=== PATIENT | female | born 1935 | race Caucasian/White ===

== ENCOUNTER 2024-09-26 21:56 | Emergency (ER) | payer MEDICARE, SELFPAY ==
[2024-09-26 21:57] VITALS: BMI 24.9
[2024-09-26 22:24] VITALS: BP 184/92; PULSE 74; RESP 18; TEMP 37.2; O2SAT 95
--- NOTE | 2024-09-26 22:42 | XR_ITS ---
Examination: CT brain head without contrast. 2-D sagittal coronal reconstructions Date and time of exam:September 26, 2024 at 10:59 PM Indications: Headache with high blood pressure today CTDI: vol (mGy):50.5 DLP: (mGycm):958 Technique: Multiple CT axial sections of the brain have been obtained, 5 mm slice thickness. Contrast has not been administered. 2-D sagittal, coronal reconstructions have been obtained Low dose protocols were performed. One or more of the following dose reduction techniques were used; automated exposure control, adjustment of the mA and/or KV according to patient size, use of iterative reconstruction technique. Findings: No significant ventricular enlargement. Intra-axial or extra-axial hemorrhage density is not seen. No mass effect or midline shift Basal cisterns are not remarkable. Fourth ventricle is midline. Cranial vault intact. Impression: Negative for acute hemorrhage, mass effect or midline shift
--- NOTE | 2024-09-26 22:42 | XR_ITS ---
Examination: PA lateral chest 2 views Technique: Upright PA lateral chest 2 views Exam date and time: September 26, 2024 11:07 PM Comparison January 05, 2010 Indications: Headache with hypertension chest pain today Findings: Normal heart size Ectatic thoracic aorta Mild accentuation basilar bronchovascular markings No pulmonary edema Severe osteopenia Impression: Mild accentuation basilar bronchovascular markings, consider pulmonary fibrosis, bronchitis, clinical correlation advised
--- NOTE | 2024-09-26 22:43 | PD.EDRME ---
Rapid Medical Screening Exam RME Arrival date/time: 09/26/24 21:56 88-year-old female with past medical history of hypertension presents emergency department complaining of high blood pressure dizziness and nausea. Chief Complaint: Headache Time Seen by Provider: 09/26/24 22:32 Vital signs: Vital Signs Temperature 99.0 F 09/26/24 22:24 Pulse Rate 74 09/26/24 22:24 Respiratory Rate 18 09/26/24 22:24 Blood Pressure 184/92 H 09/26/24 22:24 Pulse Oximetry (%) 95 09/26/24 22:24 Oxygen Delivery Method Room Air 09/26/24 22:24 Vital signs reviewed by provider: Yes
[2024-09-26 23:09] LABS: Basophils % (Auto) 1 % (0-2.5); Eosinophils # (Auto) 0.1 Thou/mm3 (0.0-0.5); Eosinophils % (Auto) 2 % (0-10); Hematocrit 34.8 % (36.0-46.0); Hemoglobin 11.7 g/dL (12.0-16.0); Immature Granulocytes % (Auto) 0 % (0-0); Immature Granulocytes Auto 0.02 Thou/mm3 (0.00-0.00); Lymphocytes # (Auto) 1.2 Thou/mm3 (1.0-4.8); Lymphocytes % (Auto) 19 % (10-50); Mean Corpuscular HGB Conc 33.6 g/dl (31.0-37.0); Mean Corpuscular Hemoglobin 30.8 pg (25.0-35.0); Mean Corpuscular Volume 92 fL (80-100); Monocytes # (Auto) 0.7 Thou/mm3 (0.0-0.8); Monocytes % (Auto) 11 % (0-12); Neutrophils # (Auto) 4.3 Thou/mm3 (1.8-7.7); Neutrophils % (Auto) 67 % (37-80); Nucleated Red Blood Cell % 0 /100 WBC (0); Platelet Count 268 Thou/mm3 (140-440); RDW Standard Deviation 41.9 fL (36.4-46.3); White Blood Count 6.4 Thou/mm3 (3.6-11.0)
[2024-09-26 23:17] LABS: Partial Thromboplastin Time 26.2 Seconds (22.0-36.0); Prothrombin Time 10.7 Seconds (9.0-12.2)
[2024-09-26 23:20] LABS: B-Type Natriuretic Peptide 117 pg/mL (0-100)
[2024-09-26 23:21] LABS: Alanine Aminotransferase 12 U/L (10-49); Albumin, Serum 3.8 gm/dL (3.4-4.8); Albumin/Globulin Ratio 1.5 (1.2-2.2); Alkaline Phosphatase 76 U/L (46-116); Anion Gap 8 (7-16); Aspartate Amino Transferase 20 U/L (0-34); BUN/Creatinine Ratio 19 Ratio (12-20); Bilirubin,Total 0.3 mg/dL (0.3-1.2); Blood Urea Nitrogen 17 mg/dL (9-23); Calcium 9.5 mg/dL (8.3-10.6); Calcium (Corrected) 9.7 mg/dL (8.5-10.1); Carbon Dioxide 25.2 mMol/L (20.0-31.0); Chloride 104 mMol/L (98-107); Creatinine (Component) 0.9 mg/dL (0.6-1.3); Estimated Creatinine Clearance 35.9 mL/min (>60); Globulin 2.5 gm/dL (2.3-3.5); Glucose 132 mg/dL (74-106); Magnesium 2.1 mg/dL (1.6-2.6); Osmolality,Calculated 277 (275-295); Potassium 3.9 mMol/L (3.4-5.1); Sodium 137 mMol/L (136-145); Total Protein 6.3 gm/dL (5.7-8.2); Troponin I < 0.020 ng/mL (0.0-0.045); eGFR > 60 See Note
[2024-09-27 00:10] LABS: Collection Type, Urine Clean Catch
[2024-09-27 00:16] VITALS: BP 199/109; PULSE 75; RESP 20; TEMP 36.9; O2SAT 96
--- NOTE | 2024-09-27 00:17 | EDNOTE_ITS ---
ED Headache RME/HPI General Chief Complaint: Headache Stated Complaint: HEADACHE/HIGH BLOOD PRESSURE 194/105 Time Seen by Provider: 09/26/24 22:32 Arrival date/time: 09/26/24 21:56 RME / HPI RME / HPI Narrative: 09/26/24 21:56 88-year-old female with past medical history of hypertension presents emergency department complaining of high blood pressure dizziness and nausea. DR. VALLADARES MAIN ED EVALUATION: 88-year-old female patient with a history of hypertension complaining of elevated blood pressure at home. Patient states she has been very stressed recently as her is hospitalized with influenza A. She states today her blood pressure was persistently 190s over 100s. She has taken her medications as directed. Denies chest pain or shortness of breath. She has had a mild dry cough. Denies numbness, tingling, vision changes. States earlier this evening she had a mild headache. Related Data Allergies Allergy/AdvReac Type Severity Reaction Status Date / Time No Known Allergies Allergy Verified 09/26/24 21:59 Review of Systems Review of Systems Systems Reviewed: All systems reviewed, normal except as documented Narrative Review of Systems: GEN: No fever, no chills, no weight loss EYES: No discharge, no visual changes, no pain HEENT: No ear pain, no congestion, no sore throat PULM: No shortness of breath, + mild dry cough cough, no congestion CV: No chest pain, no dyspnea on exertion, no palpitations GI: No nausea, no vomiting, no diarrhea, no pain, no constipation : No frequency, no urgency and no dysuria MUSC/SKEL: No joint pain, no back pain SKIN: No rash PSYCH: No hallucinations, no depression, + stress/ anxiety HEME/LYMPH: No easy bleeding or bruising tendencies NEURO: No weakness, + mild headache Past Medical History Social History SMOKING STATUS: Never smoker SUBSTANCE USE: does not use ALCOHOL: Never ED Exam Narrative Physical exam: GENERAL APPEARANCE: alert and oriented x 4, well-developed, well-nourished, no acute distress VITALS: All vitals were reviewed and the pulse ox is 97% on room air, which is normal according to my interpretation. HEENT: Normocephalic, atraumatic; pupils equal, round, reactive to light; EOMI; mucous membranes pink, moist; oropharynx clear NECK: Supple LUNGS: CTABL; no wheezes, no rales, no rhonchi HEART: Regular rate, regular rhythm; normal S1, S2; no murmurs ABDOMEN: non distended; normal BS; soft, no tenderness, no guarding, no rebound; no masses, no organomegaly, no hernia BACK: no CVA tenderness EXTREMITIES: atraumatic; no edema NEUROLOGIC: awake; alert and oriented x4; cranial nerves II-XII grossly intact; no focal sensory or motor deficits PSYCHIATRIC: appropriate mood and affect SKIN: warm, dry, normal color; no rashes Course Quality Measures none Orders Category Date Time Status EKG (ED ONLY) *Do not use* NOW Care 09/26/24 22:[address] head/brain wo con Stat Exams 09/26/24 22:42 Completed EKG (ED Only) Stat Exams 09/26/24 22:42 Ordered XR chest 2V Stat Exams 09/26/24 22:42 Completed B-Type Natriuretic Peptide Stat Lab 09/26/24 22:50 Completed CBC Stat Lab 09/26/24 22:50 Completed Comprehensive Metabolic Panel Stat Lab 09/26/24 22:50 Completed Magnesium Stat Lab 09/26/24 22:50 Completed Partial Thromboplastin Time Stat Lab 09/26/24 22:50 Completed Prothrombin Time with INR Stat Lab 09/26/24 22:50 Completed Troponin I Stat Lab 09/26/24 22:50 Completed Urinalysis Stat Lab 09/26/24 23:55 Completed hydrALAZINE HCL [Apresoline] Med 09/27/24 00:26 Discontinued 25 mg PO X1 ONE Reevaluation(s) Reevaluation #1: Patient remains clinically stable throughout the emergency department visit. Re-assessment at the time of disposition demonstrates that the patient is in no acute distress. We reviewed all the results, analysis, and treatment plans. Patient is amenable to discharge. Strict return precautions were outlined. Patient was discharged in stable condition. Time: 04:00 Vital Signs Vital signs: Vital Signs Temperature 99.0 F 09/26/24 22:24 Pulse Rate 74 09/26/24 22:24 Respiratory Rate 18 09/26/24 22:24 Blood Pressure 184/92 H 09/26/24 22:24 Pulse Oximetry (%) 95 09/26/24 22:24 Oxygen Delivery Method Room Air 09/26/24 22:24 Headache MDM Narrative MDM Narrative:: I, Alicia Leon, am scribing for and in the presence of Dr. Valladares. Patient data External records reviewed:: None (no previous visits) Clinical information provided by:: patient Social determinants that could affect healthcare access:: none Patient has the following chronic illnesses:: Hypertension How is presenting disease/condition affected by chronic disease/condition?: caused by Evaluation data The following diagnostics were reviewed and interpreted by me:: lab results, radiology exam(s) and EKG tracing(s) Lab and/or radiology exams considered but not ordered:: none Interpretation Summary: Procedure(s): CT head/brain wo con Accession Number(s): [id number] cc: Bc Fowler MD; NO PRIMARY/FAMILY,PHYSICIAN; Meche IBARRA)Anjel~ Examination: CT brain head without contrast. 2-D sagittal coronal reconstructions Date and time of exam:September 26, 2024 at 10:59 PM Indications: Headache with high blood pressure today CTDI: vol (mGy):50.5 DLP: (mGycm):958 Technique: Multiple CT axial sections of the brain have been obtained, 5 mm slice thickness. Contrast has not been administered. 2-D sagittal, coronal reconstructions have been obtained Low dose protocols were performed. One or more of the following dose reduction techniques were used; automated exposure control, adjustment of the mA and/or KV according to patient size, use of iterative reconstruction technique. Findings: No significant ventricular enlargement. Intra-axial or extra-axial hemorrhage density is not seen. No mass effect or midline shift Basal cisterns are not remarkable. Fourth ventricle is midline. Cranial vault intact. Impression: Negative for acute hemorrhage, mass effect or midline shift Dictated By: Bc Fowler MD Procedure(s): XR chest 2V Accession Number(s): [id number] cc: Bc Fowler MD; NO PRIMARY/FAMILY,PHYSICIAN; Meche Rothman (Erma [employer]NAGER)Anjel~ Examination: PA lateral chest 2 views Technique: Upright PA lateral chest 2 views Exam date and time: September 26, 2024 11:07 PM Comparison January 05, 2010 Indications: Headache with hypertension chest pain today Findings: Normal heart size Ectatic thoracic aorta Mild accentuation basilar bronchovascular markings No pulmonary edema Severe osteopenia Impression: Mild accentuation basilar bronchovascular markings, consider pulmonary fibrosis, bronchitis, clinical correlation advised Dictated By: Bc Fowler MD Medications / Prescriptions Medications or Prescriptions considered but not ordered:: none Medication administrations:: Medication Administration History Discontinued Medications Hydralazine HCl (Hydralazine Hcl 25 Mg Tablet) 25 mg PO X1 ONE Stop: 09/27/24 00:27 Last Admin: 09/27/24 01:09 Dose: 25 mg Documented By: CHRISTIANO see above Consultations Consultation(s) initiated? (list below): No Diagnosis Differential diagnosis headache: migraine, tension headache, headache and other (hypertensive emergency) Most likely diagnosis given after review of the tests above:: Elevated blood pressure reading Admission Indicated Admission indicated?: not indicated Admission Request Was there a request for admission?: No Disposition Plan Disposition Plan: Discharge Discharge Attestation Discharge Attestation: The patient and all family members were given an opportunity to ask questions and understood the discharge instructions. Discharge instructions specifically effects, indications for sooner follow up or return to the emergency department, and the expected course of current diagnosis. Patient condition: Stable Discharge Plan Plan Patient Disposition: HOME (Self Care) Prescriptions/Referrals Referrals: No Primary/Family,Physician [Primary Care Provider] - In 1 week Problem List Clinical Impression: Elevated blood pressure reading Patient/Caregiver Discharge Instructions Education Materials: ED High Blood Pressure ... Print Language: Luxembourgish Stand Alone Forms: Emy Award Info., Patient Portal Info Letter
[2024-09-27 00:37] LABS: Bilirubin,Urine Negative (Negative); Blood,Urine Negative (Negative); Clarity,Urine Clear (Clear/Hazy); Color,Urine Colorless (Lt Yel-Yel); Glucose, Urine Negative (Negative); Ketones,Urine Negative (Negative); Leukocyte Esterase,Urine Negative (Negative); Nitrite,Urine Negative (Negative); Protein,Urine Negative (Neg - Trace); RBC,Urine < 1 /hpf (0-3); Specific Gravity,Urine 1.004 (1.001-1.035); Squamous Epithelial Cell,Urine < 1 /hpf (0-5); Urobilinogen,Urine Negative mg/dL (0.0-1.0); WBC,Urine < 1 /hpf (0-5)
[2024-09-27 01:09] VITALS: BP 202/114; PULSE 78
[2024-09-27] MEDS: hydrALAZINE HCL 25 MG TABLET PO (01:09)
[2024-09-27 01:25] VITALS: BP 195/108; PULSE 78; RESP 18; TEMP 36.7; O2SAT 97
--- NOTE | 2024-09-27 01:26 | PC.NURSE ---
assisted pt to [facility]sc
[2024-09-27 03:56] VITALS: BP 176/102; PULSE 76; RESP 18; O2SAT 96
--- NOTE | 2024-09-27 03:58 | PC.NURSE ---
pt appears in NAD. Resting quietly with family at bedside. Pt denies pain .
== END 2024-09-27 04:15 | disposition home or self-care (01) ==
PROVIDERS: Emergency Provider Emergency Medicine
DX: I10 Essential (primary) hypertension (principal); R51.9 Headache, unspecified; R07.9 Chest pain, unspecified
CPT/HCPCS: 36415; 70450; 71046; 80053; 81001; 83735; 83880; 84484; 85025; 85610; 85730; 93005; 99284; A9270

== ENCOUNTER 2024-09-28 18:38 | Inpatient (IN) | payer MEDICARE, SELFPAY ==
[2024-09-28] VITALS (12 sets, daily range): BP systolic 115–145; BP diastolic 67–104; PULSE 69–158; RESP 14–98; TEMP 36.9; O2SAT 94–100; BMI 24.9
--- NOTE | 2024-09-28 18:41 | EKG_ITS ---
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1935 Requested By: ED Temporary Provider Order Number: [id number] Reading MD: ED Temporary Provider Measurements Intervals [place] Rate: 132 P: [place]: QRS: -46 QRSD: 88 T: 73 QT: 280 QTc: 416 Interpretive Statements ATRIAL FIBRILLATION WITH RAPID VENTRICULAR RESPONSE LEFT ANTERIOR FASCICULAR BLOCK [QRS AXIS <= -45, QR IN I, RS IN II] MODERATE VOLTAGE CRITERIA FOR LVH, CONSIDER NORMAL VARIANT [MEETS CRITERIA IN ONE OF: R(aVL), S(V1), R(V5), R(V5/V6)+S(V1)] MODERATE ST DEPRESSION [0.05+ mV ST DEPRESSION] No previous ECG available for comparison /store/S0/[id number].pdf
--- NOTE | 2024-09-28 18:58 | XR_ITS ---
Examination: AP chest single view Technique one AP portable sitting chest single view Exam date and time: September 28, 2024 1914 hrs. Indications: Onset chest pain today. Findings: Normal heart size Mild accentuation basilar bronchovascular markings No pneumonia or pulmonary edema Impression: Mild basilar bronchitis pattern
[2024-09-28] MEDS: DILTIAZEM INJ 5 MG/ML VIAL 5 ML 15 MG IV (19:22)
--- NOTE | 2024-09-28 19:24 | EDNOTE_ITS ---
ED General RME/HPI General Chief complaint: General Adult/Misc Complain Stated complaint: HIGH B/P AND PULSE TODAY Time Seen by Provider: 09/28/24 18:54 Arrival date/time: 09/28/24 18:38 RME / HPI RME / HPI narrative: DR. VALLDAARES MAIN ED EVALUATION: 88 year old female presents to the Emergency Department with complaints of palpitations. Patient also had high blood pressure. Patient took her blood pressure medications at 1500 hours and 1800 hours today. PMHx: Hypertension. C-sections and hysterectomy. Social Hx: No tobacco, alcohol, or substance use. Related Data Allergies Allergy/AdvReac Type Severity Reaction Status Date / Time No Known Allergies Allergy Verified 09/28/24 18:40 Review of Systems Review of Systems Systems Reviewed: All systems reviewed, normal except as documented Narrative Review of Systems: GEN: No fever, no chills, no weight loss EYES: No discharge, no visual changes, no pain HEENT: No ear pain, no congestion, no sore throat PULM: No shortness of breath, no cough, no congestion CV: No chest pain, no dyspnea on exertion, + palpitations GI: No nausea, no vomiting, no diarrhea, no pain, no constipation : No frequency, no urgency and no dysuria MUSC/SKEL: No joint pain, no back pain SKIN: No rash PSYCH: No hallucinations, no depression HEME/LYMPH: No easy bleeding or bruising tendencies NEURO: No weakness, no headache Past Medical History Past Medical History CARDIAC: Negative Congestive Heart Failure RESPIRATORY: Negative Chronic Obstructive Pulmonary Disease (COPD) GENITOURINARY: Negative Renal Disease ENDOCRINE: Negative Diabetes Mellitus Type 1 or Diabetes Mellitus Type 2 Social History SMOKING STATUS: Never smoker SUBSTANCE USE: does not use ALCOHOL: Never ED Exam Narrative Physical exam: GENERAL APPEARANCE: alert and oriented x 4, well-developed, well-nourished, no acute distress VITALS: All vitals were reviewed and the pulse ox is 97% on room air, which is normal according to my interpretation. HEENT: Normocephalic, atraumatic; pupils equal, round, reactive to light; EOMI; mucous membranes pink, moist; oropharynx clear NECK: Supple LUNGS: CTABL; no wheezes, no rales, no rhonchi HEART: tachycardic, atrial fibrillation with RVR on EKG; normal S1, S2; no murmurs ABDOMEN: non distended; normal BS; soft, no tenderness, no guarding, no rebound; no masses, no organomegaly, no hernia BACK: no CVA tenderness EXTREMITIES: atraumatic; no edema NEUROLOGIC: awake; alert and oriented x4; cranial nerves II-XII grossly intact; no focal sensory or motor deficits PSYCHIATRIC: appropriate mood and affect SKIN: warm, dry, normal color; no rashes Course Quality Measures none Orders Category Date Time Status COVID-19 Screening Questionnaire NOW Care 09/28/24 20:59 Active Hr Analyst NOW Care 09/28/24 18:58 Active Decision to Admit X1 Care 09/28/24 20:59 Completed EKG (ED ONLY) *Do not use* NOW Care 09/28/24 18:41 Completed EKG (ED ONLY) *Do not use* NOW Care 09/28/24 19:27 Completed EKG (ED Only) Stat Exams 09/28/24 18:41 Draft EKG (ED Only) Stat Exams 09/28/24 19:27 Draft XR chest 1V portable Stat Exams 09/28/24 18:58 Completed B-Type Natriuretic Peptide Stat Lab 09/28/24 19:16 Completed CBC Stat Lab 09/28/24 19:16 Completed Comprehensive Metabolic Panel Stat Lab 09/28/24 19:16 Completed Lipase Stat Lab 09/28/24 19:16 Completed Magnesium Stat Lab 09/28/24 19:16 Completed Partial Thromboplastin Time Stat Lab 09/28/24 19:16 Completed Prothrombin Time with INR Stat Lab 09/28/24 19:16 Completed Troponin I Stat Lab 09/28/24 19:16 Completed DILTIAZEM in D5W 125 MG Med 09/28/24 19:30 Discontinued 125 mg in 125 ml IV 5 mg/hr Diltiazem Inj [Cardizem Inj] Med 09/28/24 18:59 Discontinued 15 mg IV X1 ONE Vital Signs Vital signs: Vital Signs Temperature 98.4 F 09/28/24 18:47 Pulse Rate 142 H 09/28/24 18:47 Respiratory Rate 20 09/28/24 18:47 Blood Pressure 130/90 H 09/28/24 18:47 Pulse Oximetry (%) 96 09/28/24 18:47 Oxygen Delivery Method Room Air 09/28/24 18:47 [facility] Patient data External records reviewed:: [facility] previous records (Reviewed last ED visit dated 09/27/24, discharged with the following: Elevated blood pressure reading.) Clinical information provided by:: patient Social determinants that could affect healthcare access:: none Patient has the following chronic illnesses:: Hypertension. C-sections and hysterectomy. How is presenting disease/condition affected by chronic disease/condition?: e xacerbated by Evaluation data The following diagnostics were reviewed and interpreted by me:: lab results, radiology exam(s) and EKG tracing(s) (EKG done 1852 hours, my interpretation: A- fib with RVR, heart rate 132 bpm.) Lab and/or radiology exams considered but not ordered:: none Interpretation Summary: Procedure(s): XR chest 1V portable Accession Number(s): [id number] cc: Bc Fowler MD; Joann Valladares MD~ Examination: AP chest single view Technique one AP portable sitting chest single view Exam date and time: September 28, 2024 1914 hrs. Indications: Onset chest pain today. Findings: Normal heart size Mild accentuation basilar bronchovascular markings No pneumonia or pulmonary edema Impression: Mild basilar bronchitis pattern Dictated By: Bc Fowler MD Medications Medications considered but not ordered:: none Medication administrations:: Medication Administration History Acetaminophen (Acetaminophen 325 Mg Tablet) 650 mg PO Q6H PRN PRN Reason: Pain 1-3 or Fever >100.3 Stop: 10/28/24 21:03 Heparin Sodium (Porcine) (Heparin Sod Inj 5000 Unit/Ml Vial) 5,000 unit SC Q8HR [facility] Stop: 10/12/24 21:59 Last Admin: 09/28/24 21:31 Dose: 5,000 unit Documented By: ARABLELA Co-signed By: CVL Diltiazem HCl (Diltiazem In D5w 125 Mg) 125 mg in 125 mls @ 10 mls/hr IV .[id number] [facility] Stop: 10/28/24 19:29 Last Admin: 09/28/24 22:05 Dose: 10 mg/hr, 10 mls/hr Documented By: ARABELLA Ondansetron HCl (Ondansetron Inj 2 Mg/Ml Inj 2 Ml) 4 mg IV Q6H PRN; Protocol PRN Reason: NAUSEA OR VOMITING Stop: 10/28/24 21:03 Discontinued Medications Diltiazem HCl (Diltiazem Inj 5 Mg/Ml Vial 5 Ml) 15 mg IV X1 ONE Stop: 09/28/24 19:00 Last Admin: 09/28/24 19:22 Dose: 15 mg Documented By: ARABELLA Diltiazem HCl (Diltiazem In D5w 125 Mg) 125 mg in 125 mls @ 5 mls/hr IV .Q24H [facility] Stop: 10/28/24 19:29 Last Admin: 09/28/24 19:30 Dose: Not Given Documented By: ARABELLA Non-Admin Reason: Discontinued Potassium Chloride (Potassium Chloride 20 Meq Tabcr) 20 meq PO X1 ONE Stop: 09/28/24 22:21 Last Admin: 09/28/24 22:55 Dose: 20 meq Documented By: ARABELLA see above Consultations Consultation(s) initiated? (list below): Yes Consultation #1 (Physician, Specialty, Details): Discussed test HPI, PMHx, lab, radiology results and/or management with Dr. Madrigal. Will admit for further evaluation and management. Accepts patient for admission. Time: 21:00 Diagnosis Differential Diagnosis ED Complaint MDM: A-fib with RVR, CAD, cardiomyopathy, CHF Most likely diagnosis given after review of the tests above:: As noted below. Admission Indicated Admission indicated?: indicated Explain why admission is indicated or not indicated:: Diagnoses meet admission criteria. Admission Request Was there a request for admission?: Yes Admission Attestation Admission request attestation: Discussed case with [] from Hospitalist service regarding admission. Discussed patients ED course, exam findings, labs, and radiology results. The Hospitalist [agrees,declines] to accept the patient for admission. Disposition Plan Disposition Plan: Admit Medical Decision Making MDM Narrative MDM Narrative: Alicia Lomeli am scribing for and in the presence of Dr. Valladraes. Differential Diagnosis Differential Diagnosis: A-fib with RVR, CAD, cardiomyopathy, CHF Lab Data 09/28/24 19:16 09/28/24 19:16 Labs: Lab Results 09/28/24 Range/Units 19:16 WBC 7.7 (3.6-11.0) Thou/mm3 RBC 4.15 (4.00-5.20) Miln/mm3 Hgb 12.7 (12.0-16.0) g/dL Hct 37.2 (36.0-46.0) % MCV 90 (80-100) fL MCH 30.6 (25.0-35.0) pg MCHC 34.1 (31.0-37.0) g/dl RDW Std Deviation 41.1 (36.4-46.3) fL Plt Count 262 (140-440) Thou/mm3 Neut % (Auto) 69 (37-80) % Lymph % (Auto) 17 (10-50) % [place] % (Auto) 11 (0-12) % Eos % (Auto) 2 (0-10) % Baso % (Auto) 1 (0-2.5) % Neut # (Auto) 5.2 (1.8-7.7) Thou/mm3 Lymph # (Auto) 1.3 (1.0-4.8) Thou/mm3 [place] # (Auto) 0.8 (0.0-0.8) Thou/mm3 Eos # (Auto) 0.2 (0.0-0.5) Thou/mm3 Baso # (Auto) 0.1 (0.0-0.2) Thou/mm3 Immature Gran # (Auto) 0.02 H (0.00-0.00) Thou/mm3 Absolute Nucleated RBC 0.00 (0.00-0.00) Thou/mm3 Immature Gran % 0 (0-0) % Nucleated RBC % 0 (0) /100 WBC PT 10.8 (9.0-12.2) Seconds INR 1.0 (0.9-1.3) APTT 26.1 (22.0-36.0) Seconds Sodium 133 L (136-145) mMol/L Potassium 3.9 (3.4-5.1) mMol/L Chloride 101 (98-107) mMol/L Carbon Dioxide 24.2 (20.0-31.0) mMol/L Anion Gap 8 (7-16) BUN 20 (9-23) mg/dL Creatinine 1.0 (0.6-1.3) mg/dL Estim Creat Clear Calc 32.3 L (>60) mL/min eGFR 54 L (60 - ) See Note BUN/Creatinine Ratio 20 (12-20) Ratio Glucose 103 (74-106) mg/dL Calculated Osmolality 268 L (275-295) Calcium 9.5 (8.3-10.6) mg/dL Corrected Calcium 9.5 (8.5-10.1) mg/dL Magnesium 2.0 (1.6-2.6) mg/dL Total Bilirubin 0.3 (0.3-1.2) mg/dL AST 17 (0-34) U/L ALT 16 (10-49) U/L Alkaline Phosphatase 79 (46-116) U/L Troponin I < 0.020 (0.0-0.045) ng/mL B-Natriuretic Peptide 164 H (0-100) pg/mL Total Protein 6.4 (5.7-8.2) gm/dL Albumin 4.0 (3.4-4.8) gm/dL Globulin 2.4 (2.3-3.5) gm/dL Albumin/Globulin Ratio 1.7 (1.2-2.2) Lipase 44 (12-53) U/L
--- NOTE | 2024-09-28 19:27 | EKG_ITS ---
[facility] Test Date: 2024-09-28 Pat Name: ANJU ALAS Department: Room: - Gender: Female Packer: : 1935 Requested By: Joann Paulino Order Number: [id number] Reading MD: Joann Paulino Measurements Intervals [place] Rate: 88 P: [place]: QRS: -39 QRSD: 92 T: 55 QT: 370 QTc: 448 Interpretive Statements ATRIAL FIBRILLATION MARKED LEFT AXIS DEVIATION [QRS AXIS < -30] MINIMAL VOLTAGE CRITERIA FOR LVH, CONSIDER NORMAL VARIANT [MEETS CRITERIA IN ONE OF: R(aVL), S(V1), R(V5), R(V5/V6)+S(V1)] Compared to ECG 09/28/2024 18:52:31 Left-axis deviation now present Left anterior fascicular block no longer present ST (T wave) deviation no longer present /store/S0/[id number]
[2024-09-28 19:37] LABS: Basophils # (Auto) 0.1 Thou/mm3 (0.0-0.2); Basophils % (Auto) 1 % (0-2.5); Eosinophils # (Auto) 0.2 Thou/mm3 (0.0-0.5); Eosinophils % (Auto) 2 % (0-10); Hematocrit 37.2 % (36.0-46.0); Hemoglobin 12.7 g/dL (12.0-16.0); Immature Granulocytes % (Auto) 0 % (0-0); Immature Granulocytes Auto 0.02 Thou/mm3 (0.00-0.00); Lymphocytes # (Auto) 1.3 Thou/mm3 (1.0-4.8); Lymphocytes % (Auto) 17 % (10-50); Mean Corpuscular HGB Conc 34.1 g/dl (31.0-37.0); Mean Corpuscular Hemoglobin 30.6 pg (25.0-35.0); Mean Corpuscular Volume 90 fL (80-100); Monocytes # (Auto) 0.8 Thou/mm3 (0.0-0.8); Monocytes % (Auto) 11 % (0-12); Neutrophils # (Auto) 5.2 Thou/mm3 (1.8-7.7); Neutrophils % (Auto) 69 % (37-80); Nucleated Red Blood Cell % 0 /100 WBC (0); Platelet Count 262 Thou/mm3 (140-440); RDW Standard Deviation 41.1 fL (36.4-46.3); Red Blood Count 4.15 Miln/mm3 (4.00-5.20); White Blood Count 7.7 Thou/mm3 (3.6-11.0)
[2024-09-28 19:45] LABS: Partial Thromboplastin Time 26.1 Seconds (22.0-36.0); Prothrombin Time 10.8 Seconds (9.0-12.2)
[2024-09-28 19:46] LABS: B-Type Natriuretic Peptide 164 pg/mL (0-100)
[2024-09-28 19:48] LABS: Alanine Aminotransferase 16 U/L (10-49); Albumin/Globulin Ratio 1.7 (1.2-2.2); Alkaline Phosphatase 79 U/L (46-116); Anion Gap 8 (7-16); Aspartate Amino Transferase 17 U/L (0-34); BUN/Creatinine Ratio 20 Ratio (12-20); Bilirubin,Total 0.3 mg/dL (0.3-1.2); Blood Urea Nitrogen 20 mg/dL (9-23); Calcium 9.5 mg/dL (8.3-10.6); Calcium (Corrected) 9.5 mg/dL (8.5-10.1); Carbon Dioxide 24.2 mMol/L (20.0-31.0); Chloride 101 mMol/L (98-107); Estimated Creatinine Clearance 32.3 mL/min (>60); Globulin 2.4 gm/dL (2.3-3.5); Glucose 103 mg/dL (74-106); Lipase 44 U/L (12-53); Osmolality,Calculated 268 (275-295); Potassium 3.9 mMol/L (3.4-5.1); Sodium 133 mMol/L (136-145); Total Protein 6.4 gm/dL (5.7-8.2); Troponin I < 0.020 ng/mL (0.0-0.045); eGFR 54 See Note
--- NOTE | 2024-09-28 21:07 | ECHO_ITS ---
Transthoracic Echo Report Ht (in): 61 Wt (lb): 132 Exam Location: Echo Lab Status: Preadmit Analog Design Engineer: Corrie Hernandez Indications: Procedure Performed: BP: 120 / 86 HR: 72 Technical Quality: Technically difficult study MEASUREMENTS (Male / Female) Normal Values 2D ECHO LV Diastolic Diameter PLAX 4.1 cm 4.2 - 5.9 / 3.9 - 5.3 cm LV Systolic Diameter PLAX 3.0 cm IVS Diastolic Thickness 1.1 cm 0.6 - 1.0 / 0.6 - 0.9 cm LVPW Diastolic Thickness 1.1 cm 0.6 - 1.0 / 0.6 - 0.9 cm LV Relative Wall Thickness 0.5 LVOT Diameter 1.8 cm Aortic Root Diameter 2.4 cm LA Volume Index 35.9 cm?/m? 16 - 28 cm?/m? M-MODE Aortic Root Diameter MM 2.5 cm LA Systolic Diameter MM 3.8 cm LA Ao Ratio MM 1.5 AV Cusp Separation MM 1.7 cm DOPPLER AV Peak Velocity 144.0 cm/s AV Peak Gradient 8.3 mmHg AV Mean Gradient 4.0 mmHg AV Velocity Time Integral 31.6 cm AI Peak Velocity 252.0 cm/s AI Peak Gradient 25.4 mmHg AI Pressure Half Time 566.0 ms LVOT Peak Velocity 85.7 cm/s LVOT Peak Gradient 2.9 mmHg LVOT Velocity Time Integral 19.0 cm LVOT Cardiac Index 2151.6 cm?/min?m? AV Area Cont Eq vti 1.5 cm? AV Area Cont Eq pk 1.5 cm? MV Area PHT 3.1 cm? MR Peak Velocity 584.5 cm/s MR Peak Gradient 136.7 mmHg Mitral E Point Velocity 74.7 cm/s Mitral A Point Velocity 82.9 cm/s Mitral E to A Ratio 0.9 LV E' Lateral Velocity 7.1 cm/s Mitral E to LV E' Lateral Ratio 10.6 LV E' Septal Velocity 6.5 cm/s Mitral E to LV E' Septal Ratio 11.4 FINDINGS Left Ventricle Normal left ventricular size, systolic function with no obvious regional wall motion abnormalities. Mild LVH. Normal left ventricular diastolic filling pattern for age. The ejection fraction is visually es timated at 55- 60 %. Right Ventricle The right ventricle is normal in size and systolic function. Left Atrium The left atrial cavity size is mildly increased. Right Atrium The right atrium is normal by two-dimensional imaging, color flow and Doppler imaging with no struct ural abnormalities, no thrombus formation present. Atrial Septum The interatrial septum appears normal with no evidence of a shunt. Aorta The aorta is normal by two-dimensional, color flow and Doppler interrogation. Mitral Valve Mild MAC. There is moderate mitral valve regurgitation. Aortic Valve The aortic valve is trileaflet and normal by two-dimensional, color flow and Doppler interrogation. There is mild to moderate aortic valve regurgitation. Tricuspid Valve The tricuspid valve is normal by two-dimensional, color flow and Doppler interrogation. There is tra ce tricuspid valve regurgitation. Pulmonic Valve The pulmonic valve is not well visualized. There is no significant pulmonic valve regurgitation. Vessels The pulmonary artery appears normal. The inferior vena cava pulmonary and hepatic veins appear carlito l. Pericardium The pericardium is normal by two-dimensional imaging. There is no significant pericardial effusion. CONCLUSIONS Indication: Atrial fibrillation with RVR Normal LV size. Mild concentric LVH. Estimated EF 55-60 %. RV is normal in size and systolic function. LA cavity size is mildly increased. Moderate MAC. Moderate MR. Mild to moderate AI. Trace TR. Shola Stephenson (Electronically Signed) Final Date: 30 September 2024 18:10
--- NOTE | 2024-09-28 21:19 | ESHP_ITS ---
Documentation for date of: 09/28/24 [facility] History of Present Illness History of present illness: The patient is an 88-year-old female with a past medical history of hypertension who presented to the ED on 09/28/2024 with palpitations and chest discomfort/pressure. Patient was in her usual state of health until 10/13/2024 when she started to have headaches after which she checked her blood pressure and noted it was elevated with the highest reading being 190/110, pulse rate being in the 110s She attributes this to the fact that she has been stressed over the past couple days as her was admitted to the hospital and she has been here daily. She presented to the ED on Sunday and was discharged home to continue on her blood pressure medications. However today, she started to feel palpitations and chest discomfort again after which she checked with her monitor and heart rate was in the 150s, prompting this ED visit. She recalls that she has been to the ED in [place] about 6 months ago when she had palpitations and was told she had A-fib RVR, however she was discharged home on no new medications. Additionally, patient complains of a dry cough that she has had for about a week, she had presented to her PCP who started her on azithromycin and some steroids for about 5 days. Cough is getting better, but she still does have, denies chest pain or shortness of breath. ED course: In the ED, patient was afebrile and normotensive blood pressure 131/92. Chest x-ray was done which showed mild basilar bronchitis pattern and an EKG was done which showed A-fib with RVR, heart rate 132 bpm. CBC was unremarkable, CMP showed NA 130 3K3.9 CL 101 bicarb 24.2 BUN 20 creatinine 1.0 EGFR 54 BNP 164. The patient was given in the ED IV diltiazem 15 mg x 1 and started on Dilt drip at 5 mg/h. Heart rate improved to the low 100s She has been admitted for management of A-fib RVR. PMHx-as above [id number] and hysterectomy Home meds-carvedilol, olmesartan-hydrochlorothiazide Review of Systems Review of Systems Narrative Review of Systems: GENERAL: Denies fevers/chills or diaphoresis. HEENT: Denies headache or visual/hearing changes. Denies nasal discharge. NEURO: Denies unusual weakness or difficulty speaking. CARDIO: Admist chest discomfort and palpitations PULM: Admits coughing, denies SOB or wheezing GI: Denies abdominal pain, N/V/C/D/reflux/gas, bright red blood per rectum or melena. Reports having BMs. URO: Denies burning/itching/pain/urinary changes. MSK/EXT/SKIN: Denies joint/skeletal/muscle pain, issues/changes in upper or lower extremities, itchiness, or superficial pain. PSYCH: Cooperative, pleasant mood & affect. Exam Vital Signs Temp Pulse Resp BP Pulse Ox O2 Del Method 98.4 F 74 23 H 115/68 95 Room Air 09/28/24 18:47 09/28/24 19:27 09/28/24 19:27 09/28/24 19:27 09/28/24 19:27 09/28/24 18:47 Narrative Exam GENERAL: AAOX3 NEURO: SENIOR TEST ANALYST grossly intact, moves extremities x4 HEENT: Moist mucosa. Eyes open, symmetrical, & clear CARDIO: No chest pain on palpation. Tachycardic, no murmurs PULM: No noted coughing/dyspnea. Lungs CTA B/L GI: Abdomen soft, nondistended, no pain on palpation. BSx4 URO/BLADE FILER:: No further abnormalities noted. SKIN/MSK/EXT: No wounds/rashes/edema/amputations, no pain on palpation. Pedal pulses present B/L Results: Labs 09/28/24 19:16 09/28/24 19:16 Labs: Short CBC 09/28/24 Range/Units 19:16 WBC 7.7 (3.6-11.0) Thou/mm3 Hgb 12.7 (12.0-16.0) g/dL Hct 37.2 (36.0-46.0) % Plt Count 262 (140-440) Thou/mm3 BMP 09/28/24 19:16 Sodium 133 L Potassium 3.9 Chloride 101 Carbon Dioxide 24.2 BUN 20 Creatinine 1.0 Glucose 103 Calcium 9.5 Cardiac Enzymes 09/28/24 Range/Units 19:16 Troponin I < 0.020 (0.0-0.045) ng/mL Liver Function 09/28/24 Range/Units 19:16 Total Bilirubin 0.3 (0.3-1.2) mg/dL AST 17 (0-34) U/L ALT 16 (10-49) U/L Alkaline Phosphatase 79 (46-116) U/L Albumin 4.0 (3.4-4.8) gm/dL Quality Measures Quality Measures VTE prophylaxis Advance care planning discussed with:: patient and child Medications Home Medications and Allergies Allergies Allergy/AdvReac Type Severity Reaction Status Date / Time No Known Allergies Allergy Verified 09/28/24 18:40 Visit Medications Acetaminophen (Acetaminophen 325 Mg Tablet) 650 mg PO Q6H PRN PRN Reason: Pain 1-3 or Fever >100.3 Stop: 10/28/24 21:03 Heparin Sodium (Porcine) (Heparin Sod Inj 5000 Unit/Ml Vial) 5,000 unit SC Q8HR KIRILL Stop: 10/12/24 21:59 Diltiazem HCl (Diltiazem In D5w 125 Mg) 125 mg in 125 mls @ 5 mls/hr IV .Q24H KIRILL Stop: 10/28/24 19:29 Ondansetron HCl (Ondansetron Inj 2 Mg/Ml Inj 2 Ml) 4 mg IV Q6H PRN; Protocol PRN Reason: NAUSEA OR VOMITING Stop: 10/28/24 21:03 Discontinued Medications Diltiazem HCl (Diltiazem Inj 5 Mg/Ml Vial 5 Ml) 15 mg IV X1 ONE Stop: 09/28/24 19:00 Last Admin: 09/28/24 19:22 Dose: 15 mg Assessment & Plan Assessment Summary: The patient is an 88-year-old female with a past medical history of hypertension presented to the ED on 09/28/2020 for palpitations and chest discomfort/pressure. EKG on admission showed A-fib RVR with a heart rate of 132 bpm Patient is being admitted for management of A-fib RVR. #New onset A-fib RVR The patient presented with palpitations and chest discomfort/pressure. History mentions that about 3 days ago she noticed that she had headaches and checked her blood pressure, heart rate at that time was in the 110s. She also reports that she thinks that she has had a run of A-fib about 6 months ago after which she presented to the ED Jamil was not discharged on any medications. Patient follows with a academic affairs coordinator and Mateo and recently had a nuclear stress test which academic affairs coordinator said was normal and an echocardiogram but she is unable to remember when that was done. She is currently on Coreg and combination of olmesartan hydrochlorothiazide for hypertension. EKG done on admission showed A-fib RVR with a heart rate of 132 bpm. In the ED, the patient received 15 mg of IV diltiazem and was started on diltiazem drip at 5 mg/h. Consulted academic affairs coordinator Dr. Stephenson, recommends to increase diltiazem drip to 10 mg/h and he will evaluate patient tomorrow. Plan: -Admit to telemetry -Continue diltiazem drip at 10 mg/h -TSH and free T4 -Echocardiogram -Give potassium greater than 4 magnesium greater than 2 -Talk to patient about the possibility of starting on Eliquis, she will decide after she talks to academic affairs coordinator. #Mild hyponatremia Admitting labs showed sodium of 133 with osmolality of 268. Patient is euvolemic, however is on olmesartan-hydrochlorothiazide Plan: -Hold olmesartan-hydrochlorothiazide for now -Continue to monitor BMP #History of hypertension Patient has a history of hypertension and recently was seen in the ED for significantly elevated blood pressure 190/110. She is on carvedilol and olmesartan-hydrochlorothiazide for management. Blood pressure on admission currently normal. Plan: -Holding Coreg and olmesartan-hydrochlorothiazide for now -Continue Diltiazem drip -Hydralazine 10mg PO PRN if SBP>160 Health maintenance: Dispo: Tele Diet: Cardiac DVT: SC Heparin Hernandez: None Lines: Peripheral Med Rec: Pending, f/u PT: Not ordered Code: Full Case was discussed with attending physician, Dr Kristina Le MD PGY-1 Attending Provider Attestation/Addendum 88-year-old female with hypertension presented with high blood pressure palpitation chest discomfort. Patient was found to be in rapid atrial fibrillation. The patient's heart rate slowed down after she received IV Cardizem in the ER. The patient is being admitted for further management and monitoring. Patient describes recent illness characterized by cough, minimal shortness of breath. She went to her primary care provider September 17. She was given Erythromycin, steroid and B12 injection.
[2024-09-28] MEDS: HEPARIN SOD INJ 5000 UNIT/ML VIAL SC (21:31)
[2024-09-28] MEDS: DILTIAZEM in D5W 125 MG 125 MG/125 ML BAG 10 MG IV (22:05)
[2024-09-28] MEDS: POTASSIUM CHLORIDE 20 mEq TABCR PO (22:55)
[2024-09-29] VITALS (18 sets, daily range): BP systolic 109–138; BP diastolic 59–74; PULSE 57–70; RESP 15–95; TEMP 35.8–36.9; O2SAT 93–97
--- NOTE | 2024-09-29 02:18 | PC.NURSE ---
assited pt up to bsc and back to bed
[2024-09-29] MEDS: HEPARIN SOD INJ 5000 UNIT/ML VIAL SC ×3 (05:30→22:01)
[2024-09-29 05:32] LABS: Basophils # (Auto) 0.1 Thou/mm3 (0.0-0.2); Basophils % (Auto) 1 % (0-2.5); Eosinophils # (Auto) 0.1 Thou/mm3 (0.0-0.5); Eosinophils % (Auto) 2 % (0-10); Hematocrit 36.1 % (36.0-46.0); Hemoglobin 12.2 g/dL (12.0-16.0); Immature Granulocytes % (Auto) 0 % (0-0); Immature Granulocytes Auto 0.01 Thou/mm3 (0.00-0.00); Lymphocytes # (Auto) 1.5 Thou/mm3 (1.0-4.8); Lymphocytes % (Auto) 23 % (10-50); Mean Corpuscular HGB Conc 33.8 g/dl (31.0-37.0); Mean Corpuscular Hemoglobin 30.5 pg (25.0-35.0); Mean Corpuscular Volume 90 fL (80-100); Monocytes % (Auto) 14 % (0-12); Neutrophils % (Auto) 60 % (37-80); Nucleated Red Blood Cell % 0 /100 WBC (0); Platelet Count 253 Thou/mm3 (140-440); RDW Standard Deviation 41.6 fL (36.4-46.3); White Blood Count 6.7 Thou/mm3 (3.6-11.0)
[2024-09-29 05:56] LABS: Alanine Aminotransferase 12 U/L (10-49); Albumin, Serum 3.8 gm/dL (3.4-4.8); Albumin/Globulin Ratio 1.7 (1.2-2.2); Alkaline Phosphatase 70 U/L (46-116); Anion Gap 7 (7-16); Aspartate Amino Transferase 15 U/L (0-34); BUN/Creatinine Ratio 18 Ratio (12-20); Bilirubin,Total 0.5 mg/dL (0.3-1.2); Blood Urea Nitrogen 16 mg/dL (9-23); Calcium 9.1 mg/dL (8.3-10.6); Calcium (Corrected) 9.3 mg/dL (8.5-10.1); Carbon Dioxide 27.2 mMol/L (20.0-31.0); Cardiac Risk Estimate 3.7 RATIO (3.7-5.6); Chloride 103 mMol/L (98-107); Cholesterol 191 mg/dL (132-200); Creatinine (Component) 0.9 mg/dL (0.6-1.3); Estimated Creatinine Clearance 35.9 mL/min (>60); Globulin 2.2 gm/dL (2.3-3.5); Glucose 88 mg/dL (74-106); HDL Cholesterol 51 mg/dL (40-60); LDL Cholesterol,Calculated 126 mg/dL (0-130); Osmolality,Calculated 274 (275-295); Phosphorous 3.6 mg/dL (2.4-5.1); Potassium 4.1 mMol/L (3.4-5.1); Sodium 137 mMol/L (136-145); Thyroid Stimulating Hormone 1.61 uIU/mL (0.55-4.78); Triglycerides 68 mg/dL (30-150); eGFR > 60 See Note
--- NOTE | 2024-09-29 07:15 | PC.NURSE ---
Pt. here from home to bed 1, pt. states she never really felt bad she stated she felt her heart beating hard and her blood pressure was high. Pt. states she feels better now, pt. up to use bedside commode, tolerated well, no SOB of breath noted. Pt.'s is admitted up stairs.
[2024-09-29] MEDS: DILTIAZEM in D5W 125 MG 125 MG/125 ML BAG 10 MG IV (09:38)
--- NOTE | 2024-09-29 11:10 | PD.RESCONSUL ---
HPI Data of Consult Requesting Physician: Darian Acevedo MD Admitting Provider: Darian Acevedo MD Attending Provider: Darian Acevedo MD Primary Care Provider: Physician No Primary/Family Consult Narrative Reason for consult: A-fib with RVR History of present illness: 88-year-old female with past medical history of hypertension was admitted to the hospital on 09/28/2024 due to A-fib with RVR. In the ED patient came in with complaints of palpitations and high blood pressure at home. Initially patient came in tachycardic, hypertensive, and afebrile. Initial labs showed WBC 7.7, Hgb 12.7, sodium 133, potassium 3.9, BUN 20, creatinine 1, magnesium 2, and BNP 164. Initial imaging included chest x-ray which showed some bronchitis pattern. Initial EKG showed A-fib with RVR. Repeat EKG still showed A-fib. EKG today showed sinus rhythm. During my assessment patient stated that she had palpitations and some chest discomfort which started around Sunday in which she came in to our ER and was discharged. During this time patient did not have an EKG done. Patient states that she does have a history of A-fib which was diagnosed around 2 years ago when she went to [facility], but stated that she was not prescribed any rate control medication or any anticoagulation. She did not follow-up with any data management associate after this and has not had these symptoms afterwards. She mentioned that she did have a cough as well which started in the first week of September and she was prescribed some erythromycin by her primary care physician. Patient's does have influenza, but patient did not have any diagnostic testing done. Patient denies any chest pain, shortness of breath, lower extremity swelling, dizziness, or headaches. She did mention that she had not measured her blood pressure at home and it was in the 156/108 with a heart rate for the 136 up to 144's. Patient was started on diltiazem drip. Cardiology was consulted due to A-fib with RVR. PMH: Hypertension Social Hx secondhand smoker, socially drinking, denies any drugs. FMH: Dad had an NE and mother had hypertension cc:: cc: Darian Acevedo MD Review of Systems Review of Systems Narrative Review of Systems: Constitutional: Denies sweats, Denies weight loss/gain, Denies fever, Denies chills. HEENT: Denies hearing loss, Denies ear pain, Denies postnasal drip, Denies double vision, Denies blurry vision. Respiratory: Denies shortness of breath, admits cough, Denies wheezing. Cardiovascular: Denies chest pain, admits palpitations, Denies sudden loss of consciousness. GI: Denies blood in stool, Denies constipation, Denies abdominal pain, Denies difficulty swallowing, Denies nausea/vomit. : Denies urinary incontinence, Denies pain while urinating, Denies increased urinary frequency. MSK: Denies joint pain, Denies joint swelling, Denies numbness, denies lower extremity swelling. Skin: Denies rash, Denies itching, Denies easy bruising. Neuro: Denies headaches, Denies dizziness, Denies seizures. Past Medical History Past Medical History Comments PMH COMMENT: PMH: Hypertension Social Hx secondhand smoker, socially drinking, denies any drugs. FMH: Dad had an NE and mother had hypertension Exam Vital Signs Temp Pulse Resp BP Pulse Ox O2 Del Method 98.2 F 69 19 110/59 L 95 Room Air 09/29/24 09:31 09/29/24 09:38 09/29/24 09:31 09/29/24 09:38 09/29/24 09:31 09/29/24 09:31 Narrative Exam General: A/O x3, no acute distress, well-nourished, well-developed Eyes: PERRL, EOMI. Anicteric, vision grossly intact. Ears: No ear pain, no ear discharge, Hearing grossly intact. Nose: No nasal discharge. Mouth/Throat: Dry mucous membranes, no redness, no lesions. Neck: Neck supple, non-tender, no cervical lymphadenopathy. Lungs: Clear DEREJE to auscultation and percussion, No accessory muscle use. Cardio: Normal S1/S2, regular rhythm, no murmurs, no JVD or carotid bruits. Abdomen: Soft, non-tender, no palpable masses, peristalsis present, no guarding or rebound. Extremities: Symmetrical, no significant deformities, no peripheral edema , non-tender, peripheral pulses presents. Skin: No rashes, no lesions, warm to touch. Neuro: No focal neurological deficits. Psych: Cooperative, appropriate mood and effect. Results Labs 09/29/24 04:45 09/29/24 04:45 Labs: Short CBC 09/28/24 09/29/24 Range/Units 19:16 04:45 WBC 7.7 6.7 (3.6-11.0) Thou/mm3 Hgb 12.7 12.2 (12.0-16.0) g/dL Hct 37.2 36.1 (36.0-46.0) % Plt Count 262 253 (140-440) Thou/mm3 BMP 09/28/24 09/29/24 19:16 04:45 Sodium 133 L 137 Potassium 3.9 4.1 Chloride 101 103 Carbon Dioxide 24.2 27.2 BUN 20 16 Creatinine 1.0 0.9 Glucose 103 88 Calcium 9.5 9.1 Cardiac Enzymes 09/28/24 Range/Units 19:16 Troponin I < 0.020 (0.0-0.045) ng/mL Liver Function 09/28/24 09/29/24 Range/Units 19:16 04:45 Total Bilirubin 0.3 0.5 (0.3-1.2) mg/dL AST 17 15 (0-34) U/L ALT 16 12 (10-49) U/L Alkaline Phosphatase 79 70 (46-116) U/L Albumin 4.0 3.8 (3.4-4.8) gm/dL Quality Measures Quality Measures none Advance care planning discussed with:: patient and child Medications Home Medications and Allergies Home Medications ?Medication ?Instructions ?Recorded ?Confirmed ?Type carvedilol 6.25 mg tablet 6.25 mg BID 09/29/24 09/29/24 History olmesartan 20 1 tab QDAY 09/29/24 09/29/24 History mg-hydrochlorothiazide 12.5 mg tablet Allergies Allergy/AdvReac Type Severity Reaction Status Date / Time No Known Allergies Allergy Verified 09/28/24 18:40 Visit Medications Acetaminophen (Acetaminophen 325 Mg Tablet) 650 mg PO Q6H PRN PRN Reason: Pain 1-3 or Fever >100.3 Stop: 10/28/24 21:03 Heparin Sodium (Porcine) (Heparin Sod Inj 5000 Unit/Ml Vial) 5,000 unit SC Q8HR KIRILL Stop: 10/12/24 21:59 Last Admin: 09/29/24 05:30 Dose: 5,000 unit Diltiazem HCl (Diltiazem In D5w 125 Mg) 125 mg in 125 mls @ 10 mls/hr IV .[id number] [facility] Stop: 10/28/24 19:29 Last Admin: 09/29/24 09:38 Dose: 10 mg/hr, 10 mls/hr Ondansetron HCl (Ondansetron Inj 2 Mg/Ml Inj 2 Ml) 4 mg IV Q6H PRN; Protocol PRN Reason: NAUSEA OR VOMITING Stop: 10/28/24 21:03 Discontinued Medications Diltiazem HCl (Diltiazem Inj 5 Mg/Ml Vial 5 Ml) 15 mg IV X1 ONE Stop: 09/28/24 19:00 Last Admin: 09/28/24 19:22 Dose: 15 mg Diltiazem HCl (Diltiazem In D5w 125 Mg) 125 mg in 125 mls @ 5 mls/hr IV .Q24H [facility] Stop: 10/28/24 19:29 Last Admin: 09/28/24 19:30 Dose: Not Given Potassium Chloride (Potassium Chloride 20 Meq Tabcr) 20 meq PO X1 ONE Stop: 09/28/24 22:21 Last Admin: 09/28/24 22:55 Dose: 20 meq Assessment & Plan Plan 88-year-old female with past medical history of hypertension was admitted to the hospital on 09/28/2024 due to A-fib with RVR 1. A-fib with RVR 2. Essential hypertension ? Patient states that she had been having palpitations since Sunday when she came into the ER, but this time there was no EKG done ? EKG that showed A-fib with RVR initially and most recent EKG today showed sinus rhythm ? Patient does have a history of A-fib but was not on any anticoagulation or rate control medication for unknown reasons. ? Patient does not follow with any data management associate ? Patient states that her blood pressure has been in the 150s over 100s at home ? On admission patient's blood pressure was 130/90 and currently is 138/69. ? EKG did not show any ST changes ?[id number] score of 4 ?HAS-BLED score of 2 points Plan: ? Recommend to start patient on metoprolol XL 100 mg daily if blood pressure allows and to stop diltiazem drip 2 hours after starting metoprolol XL 100 mg. ?Recommend to start patient on Eliquis 2.5 mg twice daily given age and weight. ?Will follow-up on echo ordered ? Recommend to replete potassium magnesium to keep above 4 and 2 respectively to avoid any further arrhythmias. Continue rest of management as per primary team. We are grateful to be able to participate in Mrs. Gonzalez's care. Thank you for the consult Plan of care discussed with attending Gate Shear Operator, Dr Seema Dunaway MD PGY-1 Attending Provider Attestation/Addendum I have personally seen and examined the patient separately on the above date of service and discussed the plan of care with the resident. I reviewed the resident Dr. Lin consultation progress note and agree with the resident findings and plan in the note above and have also edited the documentation to reflect my findings and plan. A 88-year-old female with a past medical history of paroxysmal atrial fibrillation diagnosed previously and not on any medications right now, essential hypertension presented to the emergency department for further evaluation of palpitations along with elevated blood pressure. Patient has been has been admitted to this hospital few days ago for flu, CHF exacerbation, CKD as well as atrial fibrillation with RVR and she has been visiting him and recently went back home yesterday and she had palpitations along with some chest discomfort and came to the emergency department for further evaluation. She was found to have atrial fibrillation with RVR. Patient was started on diltiazem drip by the emergency department and patient did convert to normal sinus rhythm. Patient had previously had 1 episode of paroxysmal atrial fibrillation for which she was treated in the ER and [place] after which she did follow-up with doctors but unclear why she is not on medications. Patient has converted to sinus rhythm and recommend to stop the diltiazem drip 2 hours after starting metoprolol XL 100 mg once daily for rate control as well as blood pressure control. Patient should be started on losartan the blood pressure continues to be high and uptitrate losartan if the heart rate is well-controlled. Patient's age is greater than 80 as well as weight is less than 60 kg and recommend Eliquis 2.5 mg twice daily for anticoagulation. Keep potassium greater than 4 magnesium greater than 2.0 at all times. Echocardiogram ordered to rule out any kind of structural heart abnormalities, evaluate LV function RV function as well as diastolic function. Recommend to rule out any kind of flu or any kind of pneumonia infection the distracting factors with atrial fibrillation with RVR. Patient did have some cough and upper respiratory infections and her flew recently and was prescribed erythromycin. Shola Stephenson M.D. Interventional Cardiology
--- NOTE | 2024-09-29 13:36 | PC.CC ---
Pt Dena Gonzalez is an 88 yr old female admitted to hospitalist services for new onset A-fib w/RVR and mild hyponatremia. PHARMACY INNOVATION ASSISTANT CC met with pt at bedside to complete initial assessment. At time of encounter pt is noted to be alert and oriented to person, place and situation. Pt expressed understanding admission order. Pt able to confirm all demographic information. Pt is from home [address] Pt lives in the home with her Hero Gonzalez, who is currently admitted to [facility]. Pt identifies her daughter Tonya Perez [phone] as surrogate DM. At baseline pt reports being independent with ambulation and being able to complete her own ADLs. Pt reports she is not diabetic and is not on dialysis. Pt does not require supplemental O2. Pt is followed by PCP in [place]. At time of D/c pt will return home with family providing transport. Copy of Advance Directive provided to pt at this time.
--- NOTE | 2024-09-29 15:06 | ESPR_ITS ---
<Statement entered by Kamran Moon MD - 09/29/24 15:29> This patient with past medical history of hypertension and hyperlipidemia is admitted for atrial fibrillation with RVR. She reported that she had palpitations in the morning. This is new onset A-fib with RVR. Night team started diltiazem drip after given diltiazem push IV x 1. Patient has been converted back to sinus rhythm since morning. Cardiology recommended to start metoprolol XL 100 mg and stop the diltiazem drip 2 hours later. Will follow-up on the echocardiogram and continue current management. Electrolytes were repleted. Eliquis 2.5 mg twice daily was added as [id number] score is 4 age and weight-based. All labs and orders were reviewed. I saw and examined the patient, and I agree with current management stated by Dr Catherine MD,PGY1. Plan of care was discussed with the attending physician and resident physician. Disclaimer: Despite multiple revisions, due to the dictation software being used, the document bellow may not be free of grammatical errors including phonetic/typographic errors. However, this does not deter from our commitment to providing health care in the patient's best interest in mind. Dr. Sarai MD, PGY 2 Documentation for date of: 09/29/24 Subjective Subjective Interval history: Patient is an 88-year-old female with a past medical history of hypertension, possible A-fib with RVR (over 6 months ago) seen at [facility]/not sure of echo findings no medication added at that time, history of secondhand smoke for over 67 years from her father and . Patient brought in via EMS for palpitations and past chest pain that started on 09/26/2024. Patient stated chest pain has happened before but not as persistent as today which prompted her to come into the ER. Patient has noticed increased shortness of breath when ambulating. Denied orthopnea or paroxysmal orthopnea. Mild cough?dry that started in conjunction with cardiac symptoms. Patient denied pyrexia or chills. Denied sick contact. Patient denied cardiac history, diabetes history, or kidney disease. Previous surgeries for hysterectomy and 2 C-sections remote weight. Denied any drug use or alcohol use. New mole on left nasal fold that that began several months ago, no follow up with derm. Exam Vital Signs Temp Pulse Resp BP Pulse Ox O2 Del Method 97.9 F 66 20 136/74 H 95 Room Air 09/29/24 14:00 09/29/24 14:00 09/29/24 14:00 09/29/24 14:00 09/29/24 14:00 09/29/24 14:00 Narrative Exam General Appearance: Alert & Oriented X3, well-nourished female who is sitting in bed in no acute distress. Black papular patch on left nasal fold that appears irregular, with discoloration. HEENT: Skull symmetrical and atraumatic. Conjunctivae pin and moist. Pupils equal, round, reactive to light and accommodation (PERRL). External ear without lesion or discharge. Straight, nares patient, mucosa pink, no discharge. No thyroid nodule appreciated. Cardio: Normal Rate and Rhythm with S1 and S2 heart sounds. No murmurs or extra heart sounds auscultated. No bruits on carotid auscultation. No peripheral edema. No JVD noted. Lungs: Symmetric with good expansion. Chest and back non-tender. Breath sounds vesicular without crackles, wheezing or rhonchi Abdomen: Non-tender, Non-distended, Normal Reactive Bowel Sounds Neuro: Alert, cooperative, oriented to person, place, and time. Speech clear. CN grossly intact. Upper motor strength 5/5 and Lower motor strength 5/5. Sensation intact. Objective Labs 09/30/24 05:47 09/30/24 05:47 Labs: Laboratory Results - last 24 hr 09/28/24 09/29/24 19:16 04:45 WBC 7.7 6.7 RBC 4.15 4.00 Hgb 12.7 12.2 Hct 37.2 36.1 MCV 90 90 MCH 30.6 30.5 MCHC 34.1 33.8 RDW Std Deviation 41.1 41.6 Plt Count 262 253 Neut % (Auto) 69 60 Lymph % (Auto) 17 23 [place] % (Auto) 11 14 H Eos % (Auto) 2 2 Baso % (Auto) 1 1 Neut # (Auto) 5.2 4.0 Lymph # (Auto) 1.3 1.5 [place] # (Auto) 0.8 1.0 H Eos # (Auto) 0.2 0.1 Baso # (Auto) 0.1 0.1 Immature Gran # (Auto) 0.02 H 0.01 H Absolute Nucleated RBC 0.00 0.00 Immature Gran % 0 0 Nucleated RBC % 0 0 PT 10.8 INR 1.0 APTT 26.1 Sodium 133 L 137 Potassium 3.9 4.1 Chloride 101 103 Carbon Dioxide 24.2 27.2 Anion Gap 8 7 BUN 20 16 Creatinine 1.0 0.9 Estim Creat Clear Calc 32.3 L 35.9 L eGFR 54 L > 60 BUN/Creatinine Ratio 20 18 Glucose 103 88 Calculated Osmolality 268 L 274 L Calcium 9.5 9.1 Corrected Calcium 9.5 9.3 Phosphorus 3.6 Magnesium 2.0 2.0 Total Bilirubin 0.3 0.5 AST 17 15 ALT 16 12 Alkaline Phosphatase 79 70 Troponin I < 0.020 B-Natriuretic Peptide 164 H Total Protein 6.4 6.0 Albumin 4.0 3.8 Globulin 2.4 2.2 L Albumin/Globulin Ratio 1.7 1.7 Triglycerides 68 Cholesterol 191 LDL Cholesterol, Calc 126 HDL Cholesterol 51 Cholesterol/HDL Ratio 3.7 Lipase 44 TSH 1.61 Quality Measures Quality Measures none Advance care planning discussed with:: other Assessment & Plan Assessment Current Active Medications: Generic Name Dose Route Start Last Admin Trade Name Freq PRN Reason Stop Dose Admin Acetaminophen 650 mg 09/28/24 21:04 Acetaminophen 325 Mg Tablet PO 10/28/24 21:03 Q6H PRN Pain 1-3 or Fever >100.3 Heparin Sodium (Porcine) 5,000 unit 09/28/24 22:00 09/29/24 14:02 Heparin Sod Inj 5000 Unit/Ml Vial SC 10/12/24 21:59 5,000 unit Q8HR KIRILL Administration Diltiazem HCl 125 mg in 125 mls @ 10 mls/hr 09/28/24 21:55 09/29/24 09:38 Diltiazem In D5w 125 Mg IV 10/28/24 19:29 10 mg/hr .[id number] KIRILL 10 mls/hr Administration 10 MG/HR Ondansetron HCl 4 mg 09/28/24 21:04 Ondansetron Inj 2 Mg/Ml Inj 2 Ml IV 10/28/24 21:03 Q6H PRN NAUSEA OR VOMITING Protocol Plan Patient is an 88-year-old female with a past medical history of hypertension, possible A-fib with RVR (over 6 months ago) seen at [place] [facility]/not sure of echo findings no medication added at that time, history of secondhand smoke for over 67 years from her father and who was admitted for new onset of Atrial Fibrillation. #New onset A-fib RVR History of Atrial fibrillation with RVR, recent cardi follow up in [place] and recently had a nuclear stress test which silvering applicator said was normal and an echocardiogram but she is unable to remember when that was done. She is currently on Coreg and combination of olmesartan hydrochlorothiazide for hypertension. Despite ASCVD not being applicable given her age, given LDL- started on Atorvastatin 20 mg HS. Diagnostics: -TSH 1.61 -Lipid panel LDL 126 HDL 51 Cholesterol 191 triglycerides 68 -EKG: Afib w/ rvr Plan: -Admit to telemetry -Continue diltiazem drip at 10 mg/h, transition to oral Metoprolol XL on 09/29/2024. -Discontinue Dilt drip two hours after Metoprolol XL is given if patients remains stable -Atorvastatin 20 mg HS -Echocardiogram-pending -Give potassium greater than 4 magnesium greater than 2 -Cardiology Consulted, appreciate recommendations. #Isovolemic, Mild hyponatremia, Hyposmotic Although patient appears isovolemic, water intoxication less likely vs renal causes as their is no history of renal failure or SIADH. Likely secondary to renal loss from diuretics. NO BUN elevation, patient does not appear dry on physical exam from oral mucosa. Plan: -consider urine sodium -Consider water restriction if it does not improve -Hold olmesartan-hydrochlorothiazide for now -Continue to monitor BMP #History of hypertension #Hypertension Urgency, Resolved. In the ER, BP 190/110 likely hypertensive urgency. Home medication of olmesartan-hydrochlorothiazide on hold. Blood pressure has been within normal range. Plan: -Hold home medication of -olmesartan-hydrochlorothiazide -D/C Diltiazem drip on 09/29/2024; DC Coreg 09/29/2024 -Hydralazine 10mg PO PRN if SBP>160 Health Maintenance: Disp: Pt is currently admitted to floors for further management of atrial fibrillation, awaiting echo FEN: Eliquis 2.5 BID, no history of DVT, ambulating DVT: on subQ heparin Code: Full Code - The patient's plan was discussed with attending Dr. Torres and senior residents Dr. Sarai Alexander MD PGY1 Internal Medicine Attending Provider Attestation/Addendum I, Danyell Torres DO, attest that I was physically present for the mehta portions of the service and evaluated the patient with the resident and I reviewed and discussed the case with the resident and agree with the resident's findings and plans of care as documented above Patient seen and eval this a.m. She remains on a Cardizem drip 10 mg an hour. Heart rate has improved running sinus at 70. Discussed the risks versus benefits of anticoagulation in the setting of A-fib with patient and her son-in-law at bedside. Both were understanding of the bleeding risks as well as fall precautions. Patient denies unsteadiness with gait and frequent falls. However, patient does not want to start anticoagulation until speaking with the silvering applicator. Patient is understanding of the effects of thromboprophylaxis of anticoagulation otherwise. She denies any chest pain, shortness of breath, dizziness, diaphoresis, fevers, chills, nausea or vomiting. Patient reports that she had palpitations at the onset of her symptoms. She states she had similar symptoms a couple weeks prior, but resolved on its own.
--- NOTE | 2024-09-29 15:40 | PC.NURSE ---
Dr. Alexander called and stated there is a nursing order for medication now and then in 2 hours shut drip off.
[2024-09-29] MEDS: METOPROLOL SUCCINATE XL 25 MG TABCR 100 MG PO (15:51)
[2024-09-29] MEDS: ATORVASTATIN CALCIUM 20 MG TABLET PO (20:33)
[2024-09-29] MEDS: APIXABAN 2.5 MG TABLET PO (20:33)
[2024-09-30] VITALS (9 sets, daily range): BP systolic 120–157; BP diastolic 70–86; PULSE 62–75; RESP 16–20; TEMP 36.1–36.7; O2SAT 93–97
[2024-09-30] MEDS: HEPARIN SOD INJ 5000 UNIT/ML VIAL SC ×2 (05:28→17:37)
[2024-09-30 06:31] LABS: Basophils % (Auto) 1 % (0-2.5); Eosinophils # (Auto) 0.2 Thou/mm3 (0.0-0.5); Eosinophils % (Auto) 3 % (0-10); Hematocrit 37.5 % (36.0-46.0); Hemoglobin 12.6 g/dL (12.0-16.0); Immature Granulocytes % (Auto) 1 % (0-0); Immature Granulocytes Auto 0.03 Thou/mm3 (0.00-0.00); Lymphocytes # (Auto) 1.4 Thou/mm3 (1.0-4.8); Lymphocytes % (Auto) 22 % (10-50); Mean Corpuscular HGB Conc 33.6 g/dl (31.0-37.0); Mean Corpuscular Hemoglobin 30.4 pg (25.0-35.0); Mean Corpuscular Volume 90 fL (80-100); Monocytes # (Auto) 0.9 Thou/mm3 (0.0-0.8); Monocytes % (Auto) 15 % (0-12); Neutrophils # (Auto) 3.6 Thou/mm3 (1.8-7.7); Neutrophils % (Auto) 59 % (37-80); Nucleated Red Blood Cell % 0 /100 WBC (0); Platelet Count 251 Thou/mm3 (140-440); RDW Standard Deviation 41.7 fL (36.4-46.3); Red Blood Count 4.15 Miln/mm3 (4.00-5.20); White Blood Count 6.1 Thou/mm3 (3.6-11.0)
[2024-09-30 07:24] LABS: Alanine Aminotransferase 15 U/L (10-49); Albumin, Serum 3.8 gm/dL (3.4-4.8); Albumin/Globulin Ratio 1.7 (1.2-2.2); Alkaline Phosphatase 69 U/L (46-116); Anion Gap 6 (7-16); Aspartate Amino Transferase 16 U/L (0-34); BUN/Creatinine Ratio 18 Ratio (12-20); Bilirubin,Total 0.5 mg/dL (0.3-1.2); Blood Urea Nitrogen 16 mg/dL (9-23); Calcium 9.2 mg/dL (8.3-10.6); Calcium (Corrected) 9.4 mg/dL (8.5-10.1); Carbon Dioxide 26.5 mMol/L (20.0-31.0); Chloride 103 mMol/L (98-107); Creatinine (Component) 0.9 mg/dL (0.6-1.3); Estimated Creatinine Clearance 35.7 mL/min (>60); Globulin 2.3 gm/dL (2.3-3.5); Glucose 93 mg/dL (74-106); Osmolality,Calculated 271 (275-295); Phosphorous 3.2 mg/dL (2.4-5.1); Sodium 135 mMol/L (136-145); Total Protein 6.1 gm/dL (5.7-8.2); eGFR > 60 See Note
[2024-09-30] MEDS: APIXABAN 2.5 MG TABLET PO ×2 (08:47→21:37)
[2024-09-30] MEDS: METOPROLOL SUCCINATE XL 25 MG TABCR 100 MG PO (08:47)
--- NOTE | 2024-09-30 10:00 | PD.RESPRO ---
Documentation for date of: 09/30/24 Subjective Subjective Interval history: Patient was seen at bedside this morning. No overnight events. Patient is back into sinus rhythm and heart rate in the 70s upon review from vehicle monitor technician. Patient's potassium today was 4 and magnesium 2, recommend to keep potassium and magnesium above 4 and 2 respectively to avoid any further arrhythmias Patient had no cardiac complaints at this time. Recommend to continue metoprolol 100 XL mg daily if blood pressure allows. Patient should also be started on losartan for better blood pressure control and uptitrate as needed Recommend to continue Eliquis 2.5 twice daily for anticoagulation Will follow-up on echo ordered. Exam Vital Signs Temp Pulse Resp BP Pulse Ox O2 Del Method 97.6 F 68 17 120/86 H 93 L Room Air 09/30/24 08:00 09/30/24 08:47 09/30/24 08:00 09/30/24 08:47 09/30/24 08:00 09/30/24 08:00 Narrative Exam General: A/O x3, no acute distress, well-nourished, well-developed Eyes: PERRL, EOMI. Anicteric, vision grossly intact. Ears: No ear pain, no ear discharge, Hearing grossly intact. Nose: No nasal discharge. Mouth/Throat: Dry mucous membranes, no redness, no lesions. Neck: Neck supple, non-tender, no cervical lymphadenopathy. Lungs: Clear DEREJE to auscultation and percussion, No accessory muscle use. Cardio: Normal S1/S2, regular rhythm, no murmurs, no JVD or carotid bruits. Abdomen: Soft, non-tender, no palpable masses, peristalsis present, no guarding or rebound. Extremities: Symmetrical, no significant deformities, no peripheral edema , non-tender, peripheral pulses presents. Skin: No rashes, no lesions, warm to touch. Neuro: No focal neurological deficits. Psych: Cooperative, appropriate mood and effect. Objective Labs 09/30/24 05:47 09/30/24 05:47 Labs: Laboratory Results - last 24 hr 09/30/24 05:47 WBC 6.1 RBC 4.15 Hgb 12.6 Hct 37.5 MCV 90 MCH 30.4 MCHC 33.6 RDW Std Deviation 41.7 Plt Count 251 Neut % (Auto) 59 Lymph % (Auto) 22 [place] % (Auto) 15 H Eos % (Auto) 3 Baso % (Auto) 1 Neut # (Auto) 3.6 Lymph # (Auto) 1.4 [place] # (Auto) 0.9 H Eos # (Auto) 0.2 Baso # (Auto) 0.0 Immature Gran # (Auto) 0.03 H Absolute Nucleated RBC 0.00 Immature Gran % 1 H Nucleated RBC % 0 Sodium 135 L Potassium 4.0 Chloride 103 Carbon Dioxide 26.5 Anion Gap 6 L BUN 16 Creatinine 0.9 Estim Creat Clear Calc 35.7 L eGFR > 60 BUN/Creatinine Ratio 18 Glucose 93 Calculated Osmolality 271 L Calcium 9.2 Corrected Calcium 9.4 Phosphorus 3.2 Magnesium 2.0 Total Bilirubin 0.5 AST 16 ALT 15 Alkaline Phosphatase 69 Total Protein 6.1 Albumin 3.8 Globulin 2.3 Albumin/Globulin Ratio 1.7 Quality Measures Quality Measures none Advance care planning discussed with:: patient and child Assessment & Plan Assessment Current Active Medications: Generic Name Dose Route Start Last Admin Trade Name Freq PRN Reason Stop Dose Admin Acetaminophen 650 mg 09/28/24 21:04 Acetaminophen 325 Mg Tablet PO 10/28/24 21:03 Q6H PRN Pain 1-3 or Fever >100.3 Apixaban 2.5 mg 09/29/24 21:00 09/30/24 08:47 Apixaban 2.5 Mg Tablet PO 10/29/24 20:59 2.5 mg BID KIRILL Administration Atorvastatin Calcium 20 mg 09/29/24 21:00 09/29/24 20:33 Atorvastatin Calcium 20 Mg Tablet PO 10/29/24 20:59 20 mg HS KIRILL Administration Heparin Sodium (Porcine) 5,000 unit 09/30/24 17:30 Heparin Sod Inj 5000 Unit/Ml Vial SC 10/14/24 17:29 Q12HR KIRILL Metoprolol Succinate 100 mg 09/29/24 15:30 09/30/24 08:47 Metoprolol Succinate Xl 25 Mg Tabcr PO 10/29/24 15:29 100 mg QDAY KIRILL Administration Ondansetron HCl 4 mg 09/28/24 21:04 Ondansetron Inj 2 Mg/Ml Inj 2 Ml IV 10/28/24 21:03 Q6H PRN NAUSEA OR VOMITING Protocol Plan 88-year-old female with past medical history of hypertension was admitted to the hospital on 09/28/2024 due to A-fib with RVR 1. A-fib with RVR 2. Essential hypertension ? Patient states that she had been having palpitations since Sunday when she came into the ER, but this time there was no EKG done ? EKG that showed A-fib with RVR initially and most recent EKG today showed sinus rhythm ? Patient does have a history of A-fib but was not on any anticoagulation or rate control medication for unknown reasons. ? Patient does not follow with any tailings man ? Patient states that her blood pressure has been in the 150s over 100s at home ? On admission patient's blood pressure was 130/90 and currently is 138/69. ? EKG did not show any ST changes ?[id number] score of 4 ?HAS-BLED score of 2 points Plan: ? Recommend to continue patient on metoprolol XL 100 mg daily if blood pressure allows and to stop diltiazem drip 2 hours after starting metoprolol XL 100 mg. ?Recommend to continue patient on Eliquis 2.5 mg twice daily given age and weight. -Patient should also be started on losartan for better blood pressure control and uptitrate as needed ?Will follow-up on echo ordered ? Recommend to replete potassium magnesium to keep above 4 and 2 respectively to avoid any further arrhythmias. Continue rest of management as per primary team. We are grateful to be able to participate in Mrs. Gonzalez's care. Thank you for the consult Plan of care discussed with attending Semiconductor Wafers Etcher Stripper, Dr Seema Dunaway MD PGY-1 Attending Provider Attestation/Addendum I have personally seen and examined the patient separately on the above date of service and discussed the plan of care with the resident. I reviewed the resident Dr. Lin consultation progress note and agree with the resident findings and plan in the note above and have also edited the documentation to reflect my findings and plan. Shola Stephenson M.D. Interventional Cardiology
--- NOTE | 2024-09-30 11:41 | PC.SS ---
SECTION GANG notified by land use planner PT recommending SNF placement for the patient. [facility] is the preferred choice.
--- NOTE | 2024-09-30 13:31 | PC.SS ---
FLOOR INSPECTOR confirmed with patient that discharge plan is for the patient to return home with home health. No preferred agency identified.
--- NOTE | 2024-09-30 13:43 | EVENTNT_ITS ---
Documentation for date of: 09/30/24 Event Note Event Note: Spoke with patient, patient's daughter and GROCERY STORE BAGGER Cr at bedside. At this time, patient is alert and awake, orientated to name, place, date, and situation. Patient has decided to change CODE STATUS from full code to DNR/DNI. POLST form filled out. Family had opportunity to ask questions, which were fully answered to their satisfaction. Copy of POLST was placed in patient's chart, with original given to family. Kari Aquino MD PGY-3
--- NOTE | 2024-09-30 13:50 | PC.SS ---
ONESIMO and Dr. Gupta conducted bedside contact with the patient. Present with patient was daughter Tonya Perez. Resident reviewed with patient POLST form. Patient agreed to Code Status of DNR. Copy POLST filed in patient's chart. Original provided to the patient.
--- NOTE | 2024-09-30 13:51 | ESPR_ITS ---
<Statement entered by Kamran Moon MD - 09/30/24 16:40> Patient was seen and examined at the bedside. Patient denies any chest pain or palpitations. She was feeling concerned for her . POLST form was signed and patient CODE STATUS was changed to DNR. Automobile Lights Assembler recommended to continue metoprolol XL and Eliquis and if blood pressure is stable we can consider adding losartan if needed. Currently awaiting echocardiogram read. Electrolytes were managed. All labs and orders were reviewed. I saw and examined the patient, and I agree with current management stated by Dr Catherine MD,PGY1. Plan of care was discussed with the attending physician and resident physician. Disclaimer: Despite multiple revisions, due to the dictation software being used, the document bellow may not be free of grammatical errors including phonetic/typographic errors. However, this does not deter from our commitment to providing health care in the patient's best interest in mind. Dr. Sarai MD, PGY 2 Documentation for date of: 09/30/24 Subjective Subjective Interval history: Patient is an 88-year-old female with a past medical history of hypertension, possible A-fib with RVR (over 6 months ago) seen at [place] [facility]/not sure of echo findings no medication added at that time, history of secondhand smoke for over 67 years from her father and . No overnight events reported. No Atrial fibrillation or arrhythmias reported from tele. Patient denied chest pain or dyspnea. Denied fever or chills. Exam Vital Signs Temp Pulse Resp BP Pulse Ox O2 Del Method 97.0 F 68 16 126/70 95 Room Air 09/30/24 12:00 09/30/24 12:00 09/30/24 12:00 09/30/24 12:00 09/30/24 12:09/30/24 12:00 Narrative Exam General Appearance: Alert & Oriented X3, well-nourished female who is sitting in bed in no acute distress. Black papular patch on left nasal fold that appears irregular, with discoloration. HEENT: Skull symmetrical and atraumatic. Conjunctivae pin and moist. Pupils equal, round, reactive to light and accommodation (PERRL). External ear without lesion or discharge. Straight, nares patient, mucosa pink, no discharge. No thyroid nodule appreciated. Cardio: Normal Rate and Rhythm with S1 and S2 heart sounds. No murmurs or extra heart sounds auscultated. No bruits on carotid auscultation. No peripheral edema. No JVD noted. Lungs: Symmetric with good expansion. Chest and back non-tender. Breath sounds vesicular without crackles, wheezing or rhonchi Abdomen: Non-tender, Non-distended, Normal Reactive Bowel Sounds Neuro: Alert, cooperative, oriented to person, place, and time. Speech clear. CN grossly intact. Upper motor strength 5/5 and Lower motor strength 5/5. Sensation intact. Objective Labs 10/01/24 05:15 10/01/24 05:15 Labs: Laboratory Results - last 24 hr 09/30/24 05:47 WBC 6.1 RBC 4.15 Hgb 12.6 Hct 37.5 MCV 90 MCH 30.4 MCHC 33.6 RDW Std Deviation 41.7 Plt Count 251 Neut % (Auto) 59 Lymph % (Auto) 22 [place] % (Auto) 15 H Eos % (Auto) 3 Baso % (Auto) 1 Neut # (Auto) 3.6 Lymph # (Auto) 1.4 [place] # (Auto) 0.9 H Eos # (Auto) 0.2 Baso # (Auto) 0.0 Immature Gran # (Auto) 0.03 H Absolute Nucleated RBC 0.00 Immature Gran % 1 H Nucleated RBC % 0 Sodium 135 L Potassium 4.0 Chloride 103 Carbon Dioxide 26.5 Anion Gap 6 L BUN 16 Creatinine 0.9 Estim Creat Clear Calc 35.7 L eGFR > 60 BUN/Creatinine Ratio 18 Glucose 93 Calculated Osmolality 271 L Calcium 9.2 Corrected Calcium 9.4 Phosphorus 3.2 Magnesium 2.0 Total Bilirubin 0.5 AST 16 ALT 15 Alkaline Phosphatase 69 Total Protein 6.1 Albumin 3.8 Globulin 2.3 Albumin/Globulin Ratio 1.7 Quality Measures Quality Measures none Advance care planning discussed with:: other Assessment & Plan Assessment Current Active Medications: Generic Name Dose Route Start Last Admin Trade Name Freq PRN Reason Stop Dose Admin Acetaminophen 650 mg 09/28/24 21:04 Acetaminophen 325 Mg Tablet PO 10/28/24 21:03 Q6H PRN Pain 1-3 or Fever >100.3 Apixaban 2.5 mg 09/29/24 21:00 09/30/24 08:47 Apixaban 2.5 Mg Tablet PO 10/29/24 20:59 2.5 mg BID KIRILL Administration Atorvastatin Calcium 20 mg 09/29/24 21:00 09/29/24 20:33 Atorvastatin Calcium 20 Mg Tablet PO 10/29/24 20:59 20 mg HS KIRILL Administration Heparin Sodium (Porcine) 5,000 unit 09/30/24 17:30 Heparin Sod Inj 5000 Unit/Ml Vial SC 10/14/24 17:29 Q12HR KIRILL Metoprolol Succinate 100 mg 09/29/24 15:30 09/30/24 08:47 Metoprolol Succinate Xl 25 Mg Tabcr PO 10/29/24 15:29 100 mg QDAY KIRILL Administration Ondansetron HCl 4 mg 09/28/24 21:04 Ondansetron Inj 2 Mg/Ml Inj 2 Ml IV 10/28/24 21:03 Q6H PRN NAUSEA OR VOMITING Protocol Plan Patient is an 88-year-old female with a past medical history of hypertension, possible A-fib with RVR (over 6 months ago) seen at [place] [facility]/not sure of echo findings no medication added at that time, history of secondhand smoke for over 67 years from her father and who was admitted for new onset of Atrial Fibrillation. #Atrial Fibrillation, rate controlled on metoprolol xl #New onset A-fib RVR, resolved History of Atrial fibrillation with RVR, recent cardi follow up in [place] and recently had a nuclear stress test which leadership development consultant said was normal and an echocardiogram but she is unable to remember when that was done. She is currently on Coreg and combination of olmesartan hydrochlorothiazide for hypertension. Despite ASCVD not being applicable given her age, given LDL- started on Atorvastatin 20 mg HS. Diagnostics: -TSH 1.61 -Lipid panel LDL 126 HDL 51 Cholesterol 191 triglycerides 68 -EKG: Afib w/ rvr Plan: -Echocardiogram-pending -Admit to telemetry -oral Metoprolol XL 100 mg QDay -Atorvastatin 20 mg HS -Give potassium greater than 4 magnesium greater than 2 -Cardiology Consulted, appreciate recommendations. #History of hypertension #Hypertension Urgency, Resolved. In the ER, BP 190/110 likely hypertensive urgency. Home medication of olmesartan-hydrochlorothiazide on hold. Blood pressure has been within normal range with systolic Blood pressure ranging from 120-130. 09/30/2024-Per cardiology consider Losartan. Given systolic blood pressure <130, currently holding. Plan: -Consider Losartan if systolic blood pressure increases. -Hold home medication of -olmesartan-hydrochlorothiazide -D/C Diltiazem drip on 09/29/2024; DC Coreg 09/29/2024 -Hydralazine 10mg PO PRN if SBP>160 #Isovolemic, Mild hyponatremia, Hyposmotic, improving Although patient appears isovolemic, water intoxication less likely vs renal causes as their is no history of renal failure or SIADH. Likely secondary to renal loss from diuretics. NO BUN elevation, patient does not appear dry on physical exam from oral mucosa. Plan: -consider urine sodium -Consider water restriction if it does not improve -Hold olmesartan-hydrochlorothiazide for now -Continue to monitor BMP Health Maintenance: Disp: Pt is currently admitted to floors for further management of atrial fibrillation, awaiting echo FEN: Cardiac Diet DVT: Eliquis 2.5 BID, no history of DVT, ambulating Code: Full Code - The patient's plan was discussed with attending Dr. Torres and senior residents Dr. Sarai Alexander MD PGY1 Internal Medicine Attending Provider Attestation/Addendum I, Danyell Torres DO, attest that I was physically present for the mehta portions of the service and evaluated the patient with the resident and I reviewed and discussed the case with the resident and agree with the resident's findings and plans of care as documented above Patient seen and evaluated this AM. No acute events overnight. Patient denies any further episodes of palpitations. She denies any chest pain or shortness of breath. Patient has agreed to start eliquis. Bleeding risks and fall precautions were reviewed. Patient and son in law verbalized understanding. Pending echo and final cardiology recommendations. HR sinus rhythm at this time.
--- NOTE | 2024-09-30 15:01 | PC.SS ---
Rounding Note: Echo is pending. Patient to d/c home.
[2024-09-30] MEDS: ATORVASTATIN CALCIUM 20 MG TABLET PO (21:37)
[2024-10-01] VITALS: BP 165/87; PULSE 64; PULSE 65; RESP 20; TEMP 36.1; O2SAT 95
[2024-10-01 02:42] VITALS: PULSE 70; RESP 18; RESP 96
[2024-10-01 04:00] VITALS: BP 129/71; PULSE 64; PULSE 65; RESP 18; TEMP 36.2; O2SAT 95
[2024-10-01 05:43] LABS: Basophils # (Auto) 0.1 Thou/mm3 (0.0-0.2); Basophils % (Auto) 1 % (0-2.5); Eosinophils # (Auto) 0.2 Thou/mm3 (0.0-0.5); Eosinophils % (Auto) 3 % (0-10); Hemoglobin 12.4 g/dL (12.0-16.0); Immature Granulocytes % (Auto) 0 % (0-0); Immature Granulocytes Auto 0.02 Thou/mm3 (0.00-0.00); Lymphocytes # (Auto) 1.4 Thou/mm3 (1.0-4.8); Lymphocytes % (Auto) 23 % (10-50); Mean Corpuscular HGB Conc 33.5 g/dl (31.0-37.0); Mean Corpuscular Hemoglobin 30.7 pg (25.0-35.0); Mean Corpuscular Volume 92 fL (80-100); Monocytes # (Auto) 0.9 Thou/mm3 (0.0-0.8); Monocytes % (Auto) 16 % (0-12); Neutrophils # (Auto) 3.4 Thou/mm3 (1.8-7.7); Neutrophils % (Auto) 57 % (37-80); Nucleated Red Blood Cell % 0 /100 WBC (0); Platelet Count 244 Thou/mm3 (140-440); RDW Standard Deviation 41.9 fL (36.4-46.3); Red Blood Count 4.04 Miln/mm3 (4.00-5.20); White Blood Count 5.9 Thou/mm3 (3.6-11.0)
[2024-10-01 05:58] VITALS: BMI 24.5
[2024-10-01 06:24] LABS: Alanine Aminotransferase 15 U/L (10-49); Albumin, Serum 3.7 gm/dL (3.4-4.8); Albumin/Globulin Ratio 1.6 (1.2-2.2); Alkaline Phosphatase 69 U/L (46-116); Anion Gap 7 (7-16); Aspartate Amino Transferase 16 U/L (0-34); BUN/Creatinine Ratio 16 Ratio (12-20); Bilirubin,Total 0.6 mg/dL (0.3-1.2); Blood Urea Nitrogen 14 mg/dL (9-23); Calcium 9.1 mg/dL (8.3-10.6); Calcium (Corrected) 9.3 mg/dL (8.5-10.1); Carbon Dioxide 27.3 mMol/L (20.0-31.0); Chloride 103 mMol/L (98-107); Creatinine (Component) 0.9 mg/dL (0.6-1.3); Estimated Creatinine Clearance 35.7 mL/min (>60); Globulin 2.3 gm/dL (2.3-3.5); Glucose 88 mg/dL (74-106); Magnesium 2.1 mg/dL (1.6-2.6); Osmolality,Calculated 273 (275-295); Phosphorous 3.5 mg/dL (2.4-5.1); Potassium 4.2 mMol/L (3.4-5.1); Sodium 137 mMol/L (136-145); eGFR > 60 See Note
[2024-10-01 08:00] VITALS: BP 134/85; PULSE 70; PULSE 72; RESP 16; TEMP 36.1; O2SAT 96
[2024-10-01 08:27] VITALS: BP 134/85; PULSE 70
[2024-10-01] MEDS: METOPROLOL SUCCINATE XL 25 MG TABCR 100 MG PO (08:27)
[2024-10-01] MEDS: APIXABAN 2.5 MG TABLET PO (08:27)
[2024-10-01] MEDS: HEPARIN SOD INJ 5000 UNIT/ML VIAL SC (08:28)
--- NOTE | 2024-10-01 11:05 | PD.IMPROG ---
Documentation for date of: 10/01/24 Subjective Subjective Interval history: Patient was seen at bedside this morning. No overnight events. Patient is back into sinus rhythm and heart rate in the 70s upon review from athletic monitor. Patient's potassium today was 4 and magnesium 2, recommend to keep potassium and magnesium above 4 and 2 respectively to avoid any further arrhythmias Patient had no cardiac complaints at this time. Echocardiogram completed 09/30/2024 showed normal LV, RV size and function. Mild concentric LVH. LV estimated EF is 55 to 60%. Diastolic dysfunction could not be documented as patient is a A-fib. Mildly dilated LA. Moderate MAC moderate MR and mild to moderate AI. Trace TR Recommend to continue metoprolol 100 XL mg daily if blood pressure allows. Patient should also be started on losartan for better blood pressure control and uptitrate as needed Recommend to continue Eliquis 2.5 twice daily for anticoagulation Exam Vital Signs Temp Pulse Resp BP Pulse Ox O2 Del Method 97 F 70 16 134/85 H 96 Room Air 10/01/24 08:00 10/01/24 08:27 10/01/24 08:00 10/01/24 08:27 10/01/24 08:00 10/01/24 08:00 Narrative Exam General: A/O x3, no acute distress, well-nourished, well-developed Eyes: PERRL, EOMI. Anicteric, vision grossly intact. Ears: No ear pain, no ear discharge, Hearing grossly intact. Nose: No nasal discharge. Mouth/Throat: Dry mucous membranes, no redness, no lesions. Neck: Neck supple, non-tender, no cervical lymphadenopathy. Lungs: Clear DEREJE to auscultation and percussion, No accessory muscle use. Cardio: Normal S1/S2, regular rhythm, no murmurs, no JVD or carotid bruits. Abdomen: Soft, non-tender, no palpable masses, peristalsis present, no guarding or rebound. Extremities: Symmetrical, no significant deformities, no peripheral edema , non-tender, peripheral pulses presents. Skin: No rashes, no lesions, warm to touch. Neuro: No focal neurological deficits. Psych: Cooperative, appropriate mood and effect. Objective Labs 10/01/24 05:15 10/01/24 05:15 Labs: Laboratory Results - last 24 hr 10/01/24 05:15 WBC 5.9 RBC 4.04 Hgb 12.4 Hct 37.0 MCV 92 MCH 30.7 MCHC 33.5 RDW Std Deviation 41.9 Plt Count 244 Neut % (Auto) 57 Lymph % (Auto) 23 [place] % (Auto) 16 H Eos % (Auto) 3 Baso % (Auto) 1 Neut # (Auto) 3.4 Lymph # (Auto) 1.4 [place] # (Auto) 0.9 H Eos # (Auto) 0.2 Baso # (Auto) 0.1 Immature Gran # (Auto) 0.02 H Absolute Nucleated RBC 0.00 Immature Gran % 0 Nucleated RBC % 0 Sodium 137 Potassium 4.2 Chloride 103 Carbon Dioxide 27.3 Anion Gap 7 BUN 14 Creatinine 0.9 Estim Creat Clear Calc 35.7 L eGFR > 60 BUN/Creatinine Ratio 16 Glucose 88 Calculated Osmolality 273 L Calcium 9.1 Corrected Calcium 9.3 Phosphorus 3.5 Magnesium 2.1 Total Bilirubin 0.6 AST 16 ALT 15 Alkaline Phosphatase 69 Total Protein 6.0 Albumin 3.7 Globulin 2.3 Albumin/Globulin Ratio 1.6 Assessment & Plan A&P Narrative 88-year-old female with past medical history of hypertension was admitted to the hospital on 09/28/2024 due to A-fib with RVR 1. A-fib with RVR 2. Essential hypertension ? Patient states that she had been having palpitations since Sunday when she came into the ER, but this time there was no EKG done ? EKG that showed A-fib with RVR initially and most recent EKG today showed sinus rhythm ? Patient does have a history of A-fib but was not on any anticoagulation or rate control medication for unknown reasons. ? Patient does not follow with any outbound sales agent ? Patient states that her blood pressure has been in the 150s over 100s at home ? On admission patient's blood pressure was 130/90 and currently is 138/69. ? EKG did not show any ST changes ?[id number] score of 4 ?HAS-BLED score of 2 points Plan: ? Recommend to continue patient on metoprolol XL 100 mg daily if blood pressure allows and to stop diltiazem drip 2 hours after starting metoprolol XL 100 mg. ?Recommend to continue patient on Eliquis 2.5 mg twice daily given age and weight. -Patient should also be started on losartan for better blood pressure control and uptitrate as needed ?Echocardiogram completed 09/30/2024 showed normal LV, RV size and function. Mild concentric LVH. LV estimated EF is 55 to 60%. Diastolic dysfunction could not be documented as patient is a A-fib. Mildly dilated LA. Moderate MAC moderate MR and mild to moderate AI. Trace TR ? Recommend to replete potassium magnesium to keep above 4 and 2 respectively to avoid any further arrhythmias. Management of rest of the medical conditions as per primary team and other consultants. Thank you for the consult and allowing me to participate in the care of the patient. Cardiology will continue to follow. Sohla Stephenson M.D. Interventional Cardiology Time Spent With Patient Time: Total time spent is greater than 50% in coordination of care (as documented) at patient's floor/unit and/or counseling patient:
[2024-10-01 12:00] VITALS: BP 147/80; PULSE 68; RESP 15; TEMP 36.1; O2SAT 96
--- NOTE | 2024-10-01 12:31 | ESDS_ITS ---
<Statement entered by Danyell Torres DO - 10/01/24 15:38> I, Danyell Torres DO, attest that I was physically present for the mehta portions of the service and evaluated the patient with the resident and I reviewed and discussed the case with the resident and agree with the resident's findings and plans of care as documented above <Statement entered by Kamran Moon MD - 10/01/24 13:48> I saw and examined the patient, and I agree with current management stated by Dr Catherine MD,PGY1. Plan of care was discussed with the attending physician and resident physician. Disclaimer: Despite multiple revisions, due to the dictation software being used, the document bellow may not be free of grammatical errors including phonetic/typographic errors. However, this does not deter from our commitment to providing health care in the patient's best interest in mind. Dr. Sarai MD, PGY 2 Planned Discharge Date 10/01/24 DS: Providers Provider Date of admission: 09/28/24 21:04 Primary care physician: Physician No Primary/Family Admitting Provider: Darian Acevedo MD Attending Provider on Admission: Danyell Torres DO Consults: 09/28/24 21:50 Consult to Cardiology Routine Comment: Consulting Provider: Shola Stephenson Attending Provider on DC: Jennifer Alexander MD Discharging Provider: Jennifer Alexander MD DS: Diagnosis Problem List Completed Was Problem List Reviewed/Reconciled?: Yes Hospital Course Hospital Course Hospital course: Summary: Patient is an 88-year-old female with a past medical history of hypertension, possible A-fib with RVR (over 6 months ago) seen at [place] [facility]/not sure of echo findings no medication added at that time, history of secondhand smoke for over 67 years who was admitted for new onset of atrial fibrillation. ER Course: In the ED, patient was afebrile and normotensive blood pressure 131/92. Chest x-ray was done which showed mild basilar bronchitis pattern and an EKG was done which showed A-fib with RVR, heart rate 132 bpm. CBC was unremarkable, CMP showed NA 130 3K3.9 CL 101 bicarb 24.2 BUN 20 creatinine 1.0 EGFR 54 BNP 164. The patient was given in the ED IV diltiazem 15 mg x 1 and started on Dilt drip at 5 mg/h. Heart rate improved to the low 100s She has been admitted for management of A-fib RVR. Hospital Course: On hospital floors, patient's atrial fibrillation with RVR improved patient reverted back to being sinus rate controlled initially started on diltiazem drip and then switched over to oral medication metoprolol XL 100 mg once per day. Started Eliquis 2.5 BID for clot prevention. Cardiology was consulted given new onset of atrial fibrillation. TSH within normal limits. Lipid panel showed elevated LDL 126, HDL 51, cholesterol 191, triglycerides 68. Patient was started on atorvastatin 20 mg at bedtime. Echo showed show day overall ejection fraction of 55 to 60%, with moderate mitral regurgitation. Repeat EKG sinus rhythm. Patient started on Losartan for blood pressure and stop home medication of olmesartan-HCTZ. Instructions: -Continue new medication metoprolol succinate 100 mg once a day and elquis 2.5 mg twice daily for Atrial Fibrillation -Continue new medication Losartan 25 mg table once a day, if your blood pressure drop <100/70, please hold medication and speak to your primary care provider -Continue new medication atorvastatin 20 mg at night -We stopped your carvedilol 6.25 mg and olemesartan-HCTZ as we started metoprolol XL -If you notice any bleeding notify your doctor -Please come back to ED if you have worsening signs/symptoms and call 911 -F/U PCP as outpt within a week Disposition: Home #New onset A-fib RVR, resolved # hypertension, improved #hyponatremia, euvolemic hypoosmotic improved - The patient's plan was discussed with attending Dr. Torres and senior residents Dr. Sarai Alexander MD PGY1 Internal Medicine Time Spent with Patient Time attestation: Total time spent providing and/or coordinating discharge services: greater than 35 minutes Exam Vital Signs Temp Pulse Resp BP Pulse Ox O2 Del Method 97 F 70 16 134/85 H 96 Room Air 10/01/24 08:00 10/01/24 08:27 10/01/24 08:00 10/01/24 08:27 10/01/24 08:00 10/01/24 08:00 Narrative Exam General Appearance: Alert & Oriented X3, well-nourished male who is lying in bed in no acute distress HEENT: Skull symmetrical and atraumatic. Conjunctivae pale pink and moist. Pupils equal, round, reactive to light and accommodation (PERRL). External ear without lesion or discharge. Straight, nares patient, mucosa pink, no discharge. Cardio: Normal Rate and Rhythm with S1 and S2 heart sounds. No murmurs. No bruits on carotid auscultation. No peripheral edema or cyanosis. Lungs: Symmetric with good expansion. Chest and back non-tender. Breath sounds vesicular without crackles, wheezing or rhonchi Abdomen: Non-tender, Non-distended, Normal Reactive Bowel Sounds Neuro: Alert, cooperative, oriented to person, place, and time. Speech clear. CN grossly intact. Upper motor strength 5/5 and Lower motor strength 5/5. Sensation intact. Discharge Plan Plan Patient Disposition: HOME (Self Care) Patient condition on transfer: Stable Care Plan Goals: -Continue new medication metoprolol succinate 100 mg once a day and elquis 2.5 mg twice daily for Atrial Fibrillation -Continue new medication Losartan 25 mg table once a day, if your blood pressure drop <100/70, please hold medication and speak to your primary care provider -Continue new medication atorvastatin 20 mg at night -We stopped your carvedilol 6.25 mg and olemesartan-HCTZ and started metoprolol XL -If you notice any bleeding notify your doctor -Please come back to ED if you have worsening signs/symptoms and call 911 -F/U PCP as outpt within a week Disposition: Home Prescriptions/Referrals Prescriptions/Med Rec: New atorvastatin 20 mg Tablet 20 mg PO HS 30 Days Qty: 30 0RF Eliquis 2.5 mg Tablet 2.5 mg PO BID 30 Days Qty: 60 0RF metoprolol succinate 100 mg tablet extended release 24 hr 100 mg PO QDAY 30 Days Qty: 30 0RF losartan 25 mg tablet 25 mg PO QDAY Qty: 30 0RF Rx Instructions: Hold if SBP drops below 100 and 60 mmHg Discontinued carvedilol 6.25 mg tablet 6.25 mg BID olmesartan-hydrochlorothiazide 20-12.5 mg tablet 1 tab QDAY Patient Comments: TAKE 1 TABLET BY MOUTH EVERY DAY Referrals: Shola Stephenson MD [Physician] - No Primary/Family,Physician [Primary Care Provider] - Patient/Caregiver Discharge Instructions Print Language: Libyan Stand Alone Forms: Emy Award Info., Patient Portal Info Letter Discharge Order Discharge Orders: Discharge (Routine); Ordered 10/01/24 Ordered By: Nash Mathew Quality Discharge Quality Measures VTE prophylaxis
== END 2024-10-01 11:14 | disposition home or self-care (01) | DRG 309 ==
LOC: SERX 21:21 → SERHOLD 21:23 → S2NX 09-29 16:02
PROVIDERS: Admitting Provider Internal Medicine; Emergency Provider Emergency Medicine; Visit Provider Internal Medicine
DX: I48.0 Paroxysmal atrial fibrillation (principal); E87.1 Hypo-osmolality and hyponatremia; J40 Bronchitis, not specified as acute or chronic; E78.5 Hyperlipidemia, unspecified; I34.0 Nonrheumatic mitral (valve) insufficiency; I10 Essential (primary) hypertension; I16.0 Hypertensive urgency; Z79.01 Long term (current) use of anticoagulants; Z66 Do not resuscitate; Z90.710 Acquired absence of both cervix and uterus; Z79.899 Other long term (current) drug therapy; Z77.22 Contact with and (suspected) exposure to environmental tobacco smoke (acute) (chronic)
CPT/HCPCS: 36415; 71045; 80053; 80061; 83690; 83735; 83880; 84100; 84443; 84484; 85025; 85610; 85730; 87400; 93005; 93306; 96372; 99285; J1643; J3490; A9270; J1644